=== PATIENT | female | born 1935 | race Caucasian/White ===

== ENCOUNTER 2017-09-30 10:44 | Inpatient (IN) ==
--- NOTE | 2017-09-29 16:49 | Discharge Summary ---
<China Oliver E - Last Filed: 09/29/17 16:45> Date of Encounter: 09/29/17 - Discharge Diagnosis (1) Arthritis of left knee Priority: Primary Status: Chronic (2) Chronic pain Priority: Secondary Status: Chronic Comments: Patient takes Oxycontin 30mg BID Qualifiers: Chronic pain type: other chronic pain Qualified Code(s): G89.29 - Other chronic pain (3) Atrial fibrillation Priority: Secondary Status: Chronic Qualifiers: Atrial fibrillation type: unspecified Qualified Code(s): I48.91 - Unspecified atrial fibrillation (4) care home current use of anticoagulant Priority: Secondary Status: Chronic Comments: Eliquis (5) HTN (hypertension) Priority: Secondary Status: Chronic Qualifiers: Hypertension type: unspecified Qualified Code(s): I10 - Essential (primary ) hypertension (6) HLD (hyperlipidemia) Priority: Secondary Status: Chronic Qualifiers: Hyperlipidemia type: unspecified Qualified Code(s): E78.5 - Hyperlipidemia , unspecified (7) CAD (coronary artery disease) Priority: Secondary Status: Chronic Qualifiers: Coronary Disease-Associated Artery/Lesion type: unspecified vessel or lesion type [place] vs. 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 - Discharge Medications Home Medications: Apixaban [Eliquis] 5 mg PO BID 09/30/17 [History] Aspirin [Lo-Dose Aspirin EC] 81 mg PO DAILY 09/30/17 [History] Biotin 5,000 mcg PO BID 09/30/17 [History] Calcium Carb,Cit/D3/Phytostrol [Citracal D + Heart Health Tab] 1 tab PO DAILY [History] Cholecalciferol (D-3) [Vitamin D] 1,000 unit PO BID 09/30/17 [History] Escitalopram [Lexapro] 20 mg PO DAILY 09/30/17 [History] Lisinopril [Zestril] 5 mg PO DAILY 09/30/17 [History] Magnesium Oxide [Magnesium] 400 mg PO DAILY 09/30/17 [History] Meloxicam [Mobic] 15 mg PO DAILY 09/30/17 [History] Mirabegron [Myrbetriq] 50 mg PO DAILY 09/30/17 [History] Ondansetron HCl [Zofran] 4 mg PO Q6H PRN 09/30/17 [History] Oxycodone HCl [Oxycodone HCl ER] 30 mg PO Q12H 09/30/17 [History] Pantoprazole Sodium [Protonix] 40 mg PO DAILY 09/30/17 [History] Potassium Chloride [Klor-Con 10] 10 meq PO DAILY 09/30/17 [History] Pregabalin [Lyrica] 150 mg PO TID 09/30/17 [History] Rosuvastatin Calcium [Crestor] 10 mg PO HS 09/30/17 [History] Sotalol [Betapace] 80 mg PO BID 09/30/17 [History] Sucralfate [Carafate] 1 gm PO Q12H 09/30/17 [History] Temazepam [Restoril] 15 mg PO HS 09/30/17 [History] Allergies/Adverse Reactions: 3 Allergy/AdvReac Type Severity Reaction Status Date / Time No Known Allergies Allergy Unverified 09/04/17 12:06 Primary care physician: Lio Muñoz DO - Patient Status Disposition: Transfer Inpatient Rehab Fac Condition: Good - Discharge Instructions Follow Up With: Lio Muñoz DO [Primary Care Provider] - - Hospital Course Hospital course: Ms. Hardwick is a 82 year old female - Time Spent with Patient Total time spent providing and/or coordinating discharge services: <Sae Damon - Last Filed: 10/02/17 07:48> Date of Encounter: 10/02/17 Time of Encounter: 07:47 - Discharge Diagnosis (1) Status post left knee replacement Priority: Primary Status: Acute (2) Arthritis of left knee Priority: Primary Status: Chronic (3) Chronic pain Priority: Secondary Status: Chronic Qualifiers: Chronic pain type: other chronic pain Qualified Code(s): G89.29 - Other chronic pain (4) Atrial fibrillation Priority: Secondary Status: Chronic Qualifiers: Atrial fibrillation type: unspecified Qualified Code(s): I48.91 - Unspecified atrial fibrillation (5) care home current use of anticoagulant Priority: Secondary Status: Chronic (6) HTN (hypertension) Priority: Secondary Status: Chronic Qualifiers: Hypertension type: unspecified Qualified Code(s): I10 - Essential (primary ) hypertension (7) HLD (hyperlipidemia) Priority: Secondary Status: Chronic Qualifiers: Hyperlipidemia type: unspecified Qualified Code(s): E78.5 - Hyperlipidemia , unspecified (8) CAD (coronary artery disease) Priority: Secondary Status: Chronic Qualifiers: Coronary Disease-Associated Artery/Lesion type: unspecified vessel or lesion type [place] vs. transplanted heart: unspecified whether [place] or transplanted heart Associated angina: angina presence unspecified Qualified Code(s): I25.10 - Atherosclerotic heart disease of [place] coronary artery without angina pectoris (9) OAB (overactive bladder) Priority: Secondary Status: Chronic (10) Anemia due to acute blood loss Priority: Primary Status: Acute Primary care physician: Lio Muñoz DO - Patient Status Functional capacity at discharge: uses cane/walker Overall status at discharge: patient is progressing back to baseline - Hospital Course Hospital course: Ms. Hardwick is a 82 year old female Post left total knee replacement The patient had an uneventful postoperative course. They received antibiotics and physical therapy and were discharged in stable condition. There will follow -up in the office in 2 weeks. - Time Spent with Patient Total time spent providing and/or coordinating discharge services:
--- NOTE | 2017-09-29 16:52 | Physician Discharge Referral ---
Home Health/Hosp Referral Info Transfer to: Home Health Attending Provider: Dr. 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 For more information, call the [place] Tobacco Quit Line at 2-687-MYGU-NOW. - Dressing/Wound Care Site: left knee Type of Dressing/Treatments w/Frequency: Opsite placed. Keep dressing intact until first follow up appointment. If > 50% saturated, notify office, remove dressing and place appropriate dressing back in place. Dressing is water resistant, not water-proof. OK to shower, but do not get dressing wet. - Diet/Nutrition Diet/Nutrition Orders: Regular - Activity Activity Orders: Up ad radha, Ambulate, Chair, Walker Activity: List: Total Knee replacement Precautions x 6 weeks Apply cold therapy wrap 3-6x/day for 20 minutes at a time. Encourage ambulation throughout the day and incentive spirometer 10x/hour. Elevate affected extremity above heart as tolerated. Brace: Wear knee immobilizer at night x 2 weeks. - Services Needed Following services are medically necessary services: Nursing, Home Health Aide, Physical Therapy, Occupational Therapy - Transfer Medications Allergies/Adverse Reactions: 3 Allergy/AdvReac Type Severity Reaction Status Date / Time No Known Allergies Allergy Unverified 09/04/17 12:06 Certification: Further, I certify that my clinical findings support that this patient is homebound (i.e. absences from home require considerable and taxing effort and are for medical reasons or restorationism services or infrequently or short duration when for other reasons) because: Homebound Reason: Post-surgery restriction and or conditions limit ability to leave home Attestation: My signature below is to certify that this patient is under my care and that I, or nurse practitioner, or a physician social human services assistants working with me, has a face-to- face encounter with this patient.
--- NOTE | 2017-09-29 16:53 | Physician Discharge Referral ---
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 Priority: Secondary Status: Chronic (5) HTN (hypertension) Priority: Secondary Status: Chronic (6) HLD (hyperlipidemia) Priority: Secondary Status: Chronic (7) CAD (coronary artery disease) Priority: Secondary Status: Chronic (8) OAB (overactive bladder) Priority: Secondary Status: Chronic (9) 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 For more information, call the [employer] Tobacco Quit Line at 7-613-ERYH-NOW. - Ancillary Orders May use pressure relief devices daily prn, May go on LORENA w/family/respon democrat w /meds at nurse discretion PRN, May consult with Dentist, Lease Operator, Enrobing Machine Operator PRN - Mobility Orders Chair, Ambulate - Rehabiliation Orders Rehab Potential: Good Rehab Orders: Evaluation for Physical Therapy, Evaluation for Occupational Therapy Other: Total Knee replacement Precautions x 6 weeks Apply cold therapy wrap 3-6x/day for 20 minutes at a time. Encourage ambulation throughout the day and incentive spirometer 10x/hour. Elevate affected extremity above heart as tolerated. Brace: Wear knee immobilizer at night x 2 weeks. - Treatments Skin tear care topically daily PRN per policy List/Other: Opsite placed. Keep dressing intact until first follow up appointment. If > 50% saturated, notify office, remove dressing and place appropriate dressing back in place. Dressing is water resistant, not water-proof. OK to shower, but do not get dressing wet. - Diet Orders Regular CERTIFICATION: I certify that the transfer of the above named patient to an Extended Care Facility is necessary for the continuing treatment of the diagnosis listed. The above information is true and accurate reflection of patient's current condition. Confidential - Redisclosure prohibited without a patient's written consent.
[2017-09-30] MEDS ORDERED: CeFAZolin Syr 2,000MG/20 ML 2,000 MG/20 ML SYRINGE IVPB ONE (11:05)
--- NOTE | 2017-09-30 11:15 | Anesthesia Evaluation PreOp ---
Date of Encounter: 09/30/17 Time of Encounter: 11:10 - Past History Planned Operation: Left Total Knee Arthroplasty Cardiac History: [place] (7 years ago), CHF, HTN, Hyperlipidemia, Arrhythmia (Afib) Pulmonary History: Denies Any Significant HX SURGICAL PHYSICIAN ASSISTANT History: CVA (no residual7 years ago), Other (Lumbar DDD, stenosis, HNP and compression fx.) Other Medical History: Denies Any Significant HX, GERD Anesthesia History: No Prior Anesthetic Complications, Past Anesthesia ( laminectomy, discectomy, Kypholplasty, l. wrist, DOMINIC) : No Alcohol Use: none Drug use: none Medications and Allergies 3 Allergy/AdvReac Type Severity Reaction Status Date / Time No Known Allergies Allergy Unverified 09/04/17 12:06 - Meds/Allergy Pre-op Review Medications Reviewed: Yes Allergies Reviewed: Yes Beta Blockers on Current Med List: Yes If Beta Blockers taken, Date/Time (Last Dose taken): Sotolol @ 08:30 09/30/2017 Anesthesia Results - Labs Laboratory Tests 09/04/17 09/04/17 09/04/17 12:20 12:20 12:20 WBC 7.8 Hgb 13.2 Plt Count 204 INR 1.4 Sodium 142 Potassium 3.9 Chloride 102 Carbon Dioxide 30 H BUN 11 Creatinine 1.09 - Imaging EKG: image reviewed (SR, Old inf and ant [place]) Anesthesia Exam O2 Sat Height 1.65 m Height 1.65 m Height 1.65 m Weight 74.843 kg Weight 74.843 kg Weight 74.843 kg O2 Sat by Pulse Oximetry 93 O2 Sat by Pulse Oximetry 93 Vital Signs Temp Pulse Resp BP Pulse Ox 98.2 F 66 18 154/80 93 09/30/17 11:11 09/30/17 11:11 09/30/17 11:11 09/30/17 11:11 09/30/17 11:11 Height: 5'5'' Weight: 165# NPO (# of Hours): > 8 hrs Pain Scale: 0 Pain Scale Used: Numeric (1 - 10) - HEENT Pupil (Motor): Pupils equal, EOMI Mallampati: I Teeth: Normal Oral Opening: Greater than 3 - SURGICAL PHYSICIAN ASSISTANT LOC: Oriented SURGICAL PHYSICIAN ASSISTANT Motor: Normal RUE, Normal LUE, Normal RLE, Normal LLE, Normal Face SURGICAL PHYSICIAN ASSISTANT Sensory: Normal: RUE, LUE, RLE, LLE, Face - Cardiac Rhythm: Regular Murmur: None JVD: No Carotid Bruit: No - Pulmonary Breath Sounds: bilateral Clear Respiratory Effort: Symmetrical Anesthesia Assess/Plan ASA Score: 3 Modified Allen Scale for Level of Consciousness: Cooperative, oriented, and tranquil Anesthetic Plan: General, Regional (Right Fem. Nerve Block) Autologous Blood: Yes Monitoring Plan: Standard Monitors Recovery Plan: PACU
[2017-09-30] MEDS: Ringers Solution, Lactated 1,000 ML IVC SCH ×2 (11:41→15:34)
--- NOTE | 2017-09-30 12:10 | History & Physical Report ---
Date of Encounter: 09/30/17 Time of Encounter: 12:10 24 Hour HP Update - Instructions Instructions: If the History and Physical is less than 30 days old and was completed prior to A.M. admission and or procedure and has NOT been updated on calendar day of procedure please complete this update prior to performing procedure. - Update Patient reports changes in Medical Condition: No Changes in examination, assessment, or condition: No Changes in Medication: No Preop tests/diagnostics Reviewed: Yes Surgery Remains Indicated: Yes Consent for Planned Operative Procedure(s) Verified: Yes - Pre-Operative Checklist Preoperative Checklist Indicated: No Prophylactic Antibiotic Ordered: Yes Is VTE Prophylaxis Indicated?: Yes
[2017-09-30] MEDS ORDERED: ROPIVACAINE HCL/PF 0.5% 30 ML VIAL ONE (12:57)
[2017-09-30] MEDS ORDERED: Bupivacaine/Clonidine Syringe 1 EACH SYRINGE ONE (12:57)
[2017-09-30] MEDS ORDERED: Ethanol\\Acetic Acid\\Na Ace\\Ben 1,000 ML IRRIG.SOLN IR ONE (13:42)
--- NOTE | 2017-09-30 13:45 | Anesthesia Procedures ---
Date of Encounter: 09/30/17 Time of Encounter: 13:42 Procedures: Anesthesia - Nerve Block Procedure Date: 09/30/17 Time: 13:42 Allergies/Adv Reactions: 3 Allergy/AdvReac Type Severity Reaction Status Date / Time No Known Allergies Allergy Unverified 09/04/17 12:06 Pre-op Diagnosis: left knee oa Surgical Procedure: left total knee Checklist: Correct Patient Identifier, Correct procedure, History checked Correct side: Left Blood Thinner: No Monitor Applied: EKG, BP, Pulse Oximetry Supplemental Oxygen via Nasal Cannula (L/min): 2 Sedation: Versed (mg): 1 Sedation: Fentanyl (mcg): 100 Indication: Post Op Analgesia Pre-op Neuro Deficits: No Block Type: Femoral (0.5% ropivicaine 30 ml), Other (iPACK 20cc 0.25% bupivicaine) Catheter placed: No Sterile Technique: Yes Ultrasound used: Yes Anatomy identified: Yes Visual spread of Local: Yes Neuro Stimulation: Yes (femoral) Nerve Stimulator Range: 0.2 - 0.4 mA Blood on Needle Aspiration: No Smooth Injection of Local: Yes Pain with Injection of Local: No Prep: Chlorhexadine Needle: 22 x 50 mm Stimuplex (femoral), 21 x 100 mm Stimuplex (iPACK) Local: 0.25% Bupivicaine w/Clonidine 20 mcg/cc, Ropivacaine Volume (cc): 50 Number of Attempts: 1 Complications: None/effective block
[2017-09-30] MEDS ORDERED: EPHEDrine 50 MG/ML VIAL ONE (14:09)
[2017-09-30] MEDS ORDERED: *HR* FentaNYL (PF) 100 MCG/2 ML VIAL ONE (14:21)
[2017-09-30] MEDS ORDERED: Dexamethasone 4 MG/ML VIAL ONE (14:21)
[2017-09-30] MEDS ORDERED: *HR* Propofol 200 MG/20 ML VIAL IVP ONE (14:21)
[2017-09-30] MEDS ORDERED: *HR* Midazolam HCl 2 MG/2 ML VIAL ONE (14:21)
[2017-09-30] MEDS ORDERED: Lidocaine -MPF 2% 2 ML VIAL ONE (14:21)
[2017-09-30] MEDS ORDERED: *HR* Succinylcholine 200 MG/10 ML VIAL IVP ONE (14:21)
[2017-09-30] MEDS ORDERED: *HR* Labetalol 20 MG/4 ML SYRINGE IVP PRN (14:27)
[2017-09-30] MEDS ORDERED: Ondansetron 4 MG/2 ML VIAL IVP PRN ×2 (14:27→16:33)
--- NOTE | 2017-09-30 14:35 | Orthopedic Operative Note ---
Date of procedure: 09/30/17 Pre-op diagnosis: Left knee arthritis Post-op diagnosis: same Procedure: Procedure: Left Total knee replacement Estimated blood loss: 600 cc Hardware: Metal and polyethylene replacement. Arthrex Femur: 5 Tibia: 5 PS insert: 16 Patella: 37 Exam Under anesthesia: Loss of full extension 30 degrees, severe varus alignment. Procedural Notes: Grade 4 arthritic changes medial compartment patellofemoral joint Operative procedure: The patient was brought to the operating room and placed on the operating room table. After general anesthesia was administered the operative knee was examined. Findings were noted in the exam under anesthesia. The operative extremity was prepped and draped in sterile surgical fashion. The patient received IV antibiotics prior to skin incision. A standard midline incision was made centered over the patella. The incision was made through the skin and subcutaneous tissue. A medial parapatellar tendon approach was performed. Care was taken to preserve tissue along the medial aspect of the patella. And to protect the patella tendon. The deep MCL was released off the medial tibia. The infra patella fat pad was excised. Knee was brought into flexion. Patient noted a grade 4 arthritic changes medial compartment and patellofemoral joint. The entry hole was made for the intramedullary femoral guide. The guide was seated in 6 degrees of valgus. Anterior cut was made followed by the distal cut. The ACL the PCL the medial and the lateral menisci were excised. The tibia was subluxed forward. The entry hole was made for the intramedullary tibial guide. Guide was seated to resect 2 mm off the more abnormal side. The knee was brought into flexion the distal femur was sized to a 5. The femoral guide was seated, the anterior cut was made followed by the posterior condylar cut, followed by the chamfer cuts. The finishing guide was seated the box cut was made and the lug holes were drilled. The tibia was sized to a 5, the tibial tray was seated and prepared with the large drill followed by the fin cutter. Trial reduction revealed full extension no varus valgus instability with the appropriate 16 PS Staci. The patella was everted and cut was made at the level of the insertion of the quadriceps and patella tendon. The patella was sized 37 the guide was seated and the lug holes are drilled. Trial reduction revealed excellent patella tracking. All trial components were removed all bony surfaces were irrigated. The tibia was cemented first followed by the femur. The 16 PS Staci was seated and the knee was brought into full extension. The patella was cemented and held in place with the patellar holding clamp. After the cement had hardened, the knee sat for 2 minutes with a Betadine saline solution. The PA closed the knee. The knee was then irrigated out with 2 L of pulse irrigation. The extensor mechanism was closed with #2 FiberWire suture and #2 PDS suture. The subcutaneous tissue was then irrigated and closed deep with #1 PDS suture superficially with 0 PDS suture and skin was closed with skin zurdo. The patient was then placed in a sterile dressing and a postoperative brace extubated and transferred to recovery room in stable condition. Anesthesia: PARKER Surgeon: Sae Damon Liquor Commissioner: China Oliver Condition: stable Disposition: PACU
[2017-09-30] MEDS: *HR* HYDROmorphone (PF) 1 MG/ML SYRINGE IVP PRN ×4 (15:30→17:44)
--- NOTE | 2017-09-30 16:06 | Anesthesia Evaluation Post Op ---
Date of Encounter: 09/30/17 Time of Encounter: 16:05 - Vital Signs Vital Signs: Vital Signs/O2 Sat, Most Current Temp Pulse Resp BP Pulse Ox 98.0 F 59 16 135/86 97 09/30/17 15:47 09/30/17 15:57 09/30/17 15:57 09/30/17 15:57 09/30/17 15:57 - Lungs Lungs: Clear Ascult./Percussion - Airway Airway: Non-obstructed - Cardiovascular Regular Rate - Mental Status Mental Status: Alert & Oriented, Answers Appropriately - Pain Pain Scale: 8 Pain Scale used: Numeric (1 - 10) - Nausea Vomiting Nausea Vomiting: Not Present - Hydration Hydration: Ice chips, Has not voided - Discharge PostOp Status: Transfer Patient to floor
[2017-09-30 16:33] LABS: Hemoglobin 11.1 g/dL (11.5-15.4)
[2017-09-30] MEDS ORDERED: Sennosides 8.6 MG TABLET PO PRN (16:33)
[2017-09-30] MEDS ORDERED: Naloxone 0.4 MG/ML INJ IVP PRN (16:33)
[2017-09-30] MEDS ORDERED: MOM Conc 10 ML UD.LIQ PO PRN (16:33)
[2017-09-30] MEDS ORDERED: *HR* OxyCODONE Immed Rel 5 MG TABLET PO PRN (16:33)
[2017-09-30] MEDS ORDERED: Ringers Solution, Lactated 1,000 ML IVC SCH (16:33)
[2017-09-30] MEDS ORDERED: Temazepam 15 MG CAPSULE PO PRN (16:33)
[2017-09-30] MEDS: CeFAZolin Premix DUPLEX 2,000 MG/50 ML BAG IVPB SCH (17:45)
[2017-09-30] MEDS ORDERED: *HR* Enoxaparin 30 MG/0.3 ML SYRINGE SQ SCH (18:00)
[2017-09-30] MEDS: *HR* OxyCODONE Immed Rel 5 MG TABLET PO PRN (18:42)
[2017-09-30] MEDS: Pregabalin 75 MG CAPSULE PO SCH ×2 (18:42→20:33)
[2017-09-30] MEDS: Sucralfate 1 GM TABLET PO SCH (18:42)
[2017-09-30] MEDS: Temazepam 15 MG CAPSULE PO SCH (20:34)
[2017-09-30] MEDS: APIXABAN 5 MG TABLET PO SCH (20:34)
[2017-09-30] MEDS: Cholecalciferol (D-3) 1,000 UNIT TABLET PO SCH (20:45)
[2017-09-30] MEDS ORDERED: Furosemide 20 MG/2 ML VIAL IVP ONE (21:13)
[2017-09-30] MEDS ORDERED: 0.9 % Sodium Chloride 250 ML ONE (22:38)
[2017-10-01] MEDS: *HR* OxyCODONE Immed Rel 5 MG TABLET PO PRN ×5 (01:18→20:07)
[2017-10-01] MEDS: CeFAZolin Premix DUPLEX 2,000 MG/50 ML BAG IVPB SCH (01:21)
[2017-10-01] MEDS ORDERED: 0.9 % Sodium Chloride 250 ML ONE (03:51)
[2017-10-01] MEDS: Sucralfate 1 GM TABLET PO SCH ×2 (04:37→16:25)
--- NOTE | 2017-10-01 06:24 | Orthopedics Progress Note ---
Date of Encounter: 10/01/17 Time of Encounter: 06:24 - Assessment and Plan (1) Status post left knee replacement Current Visit: Yes Status: Acute (2) Arthritis of left knee Current Visit: No Status: Chronic (3) Chronic pain Current Visit: No Status: Chronic Qualifiers: Chronic pain type: other chronic pain Qualified Code(s): G89.29 - Other chronic pain (4) Atrial fibrillation Current Visit: No Status: Chronic Qualifiers: Atrial fibrillation type: unspecified Qualified Code(s): I48.91 - Unspecified atrial fibrillation (5) senior care current use of anticoagulant Current Visit: No Status: Chronic (6) HTN (hypertension) Current Visit: No Status: Chronic Qualifiers: Hypertension type: unspecified Qualified Code(s): I10 - Essential (primary ) hypertension (7) HLD (hyperlipidemia) Current Visit: No Status: Chronic Qualifiers: Hyperlipidemia type: unspecified Qualified Code(s): E78.5 - Hyperlipidemia , unspecified (8) CAD (coronary artery disease) Current Visit: No Status: Chronic Qualifiers: Coronary Disease-Associated Artery/Lesion type: unspecified vessel or lesion type [place] vs. transplanted heart: unspecified whether [place] or transplanted heart Associated angina: angina presence unspecified Qualified Code(s): I25.10 - Atherosclerotic heart disease of [place] coronary artery without angina pectoris (9) OAB (overactive bladder) Current Visit: No Status: Chronic Subjective Interval history: Patient was seen this morning doing well without complaints. Afebrile vital signs stable. Operative extremity: Neurovascularly intact Dressing clean dry and intact Calves nontender Assessment and plan: Continue with postoperative care Hypotensive overnight responded well to transfusion. Check H&H and morning Objective Vital signs: Vital Signs Temp Pulse Resp BP Pulse Ox 10/01/17 04:49 97.5 F L 59 16 120/68 99 10/01/17 04:34 97.8 F 56 15 112/56 98 10/01/17 03:48 97.6 F 65 16 106/64 95 10/01/17 01:20 97.6 F 61 15 115/68 09/30/17 23:21 97.4 F L 58 14 103/57 99 09/30/17 23:06 97.4 F L 55 15 103/59 97 09/30/17 22:34 105/61 09/30/17 21:02 66 83/50 09/30/17 20:50 68 63/40 09/30/17 19:05 97.3 F L 68 18 97/57 99 09/30/17 18:35 97.9 F 66 14 97/57 97 09/30/17 17:35 73 14 121/76 98 09/30/17 17:21 68 14 108/65 97 09/30/17 16:39 97.9 F 63 16 113/76 98 09/30/17 16:07 97.8 F 60 14 132/81 98 09/30/17 15:57 59 16 135/86 97 09/30/17 15:47 98.0 F 62 18 100/87 98 09/30/17 15:37 61 16 159/101 95 09/30/17 15:27 70 16 148/107 95 09/30/17 15:17 97.4 F L 65 14 138/103 94 09/30/17 13:35 62 16 154/85 95 09/30/17 13:25 63 16 153/77 97 09/30/17 13:15 62 16 153/80 95 09/30/17 13:05 59 16 146/79 95 09/30/17 11:13 98.2 F 66 18 154/80 93 09/30/17 11:11 98.2 F 66 18 154/80 93 Intake and Output 09/30/17 09/30/17 10/01/17 15:59 23:59 07:59 Intake Total 975 / 975 440 / 440 400 / 400 Output Total 600 / 600 200 / 200 150 / 150 Balance 375 / 375 240 / 240 250 / 250 Intake: IV Fluids 975 / 975 50 / 50 Lactated Ringers 1,000 ML @ 75 975 / 975 mls/hr IVC .[id number] [facility] Rx#: [id number] Ancef Premix DUPLEX 2,000 mg In 50 / 50 50 ml @ 100 mls/hr IVPB Q8H [facility] Rx#:[id number] Oral 390 / 390 50 / 50 Blood Product 0 / 0 350 / 350 Rbcs Leuko Poor As-1 Unit 0 / 0 350 / 350 [id number] Rbcs Leuko Poor As-1 Unit 0 / 0 [id number] Output: Urine 200 / 200 150 / 150 Estimated Blood Loss 600 / 600 Other: Weight 74.843 kg - Labs CBC & BMP: 09/30/17 16:02 Labs: Abnormal lab results Hgb 11.1 g/dL (11.5-15.4) L 09/30/17 16:02 Hct 34.0 % (35.3-44.9) L 09/30/17 16:02 - VTE Documentation of Mechanical Device: Venous foot pump, device Consult Discharge Plan - Plan Referrals: Lio Muñoz DO [Primary Care Provider] -
[2017-10-01] MEDS: Aspirin Enteric Coated 81 MG Tablet PO SCH (07:48)
[2017-10-01] MEDS: Cholecalciferol (D-3) 1,000 UNIT TABLET PO SCH (07:49)
[2017-10-01] MEDS: Pregabalin 75 MG CAPSULE PO SCH ×3 (07:49→20:06)
[2017-10-01] MEDS: Magnesium Oxide 400 MG TABLET PO SCH (07:49)
[2017-10-01] MEDS: APIXABAN 5 MG TABLET PO SCH ×2 (07:50→20:07)
[2017-10-01] MEDS: PHYTOSTROL PO SCH (07:51)
[2017-10-01] MEDS: CALCIUM CARB CIT PO SCH (07:51)
[2017-10-01] MEDS: D3 PO SCH (07:51)
[2017-10-01] MEDS: (Mirabegron [Myrbetriq] 50 MG) PO SCH (07:52)
[2017-10-01 09:38] LABS: Hematocrit 34.1 % (35.3-44.9); Hemoglobin 11.2 g/dL (11.5-15.4)
[2017-10-01 09:50] LABS: BUN/Creatinine Ratio 18 (6-26); Blood Urea Nitrogen 15 mg/dL (7-20); Calcium 8.5 mg/dL (8.6-10.8); Carbon Dioxide 28 mEq/L (19-29); Chloride 102 mEq/L (98-109); Glucose 166 mg/dL (70-99); Osmolality,Calculated 293 (280-300); Potassium 3.4 mEq/L (3.5-4.5); Sodium 139 mEq/L (136-145); eGFR For African Americans > 60 (> 60); eGFR For Non-African Americans > 60 (> 60)
--- NOTE | 2017-10-01 11:21 | Event Note ---
Date of Encounter: 10/01/17 Time of Encounter: 11:30 PCR- POD#1 Left TKR [place] 09/30/17 PCR - Patient seen at bedside. 10/01 - H/H 11.2/34.1 - patient received 2 units transfusion after hypotensive episode on POD#0. Pain control: Adequate Participating in PT. All questions and concerns addressed. patient c/o right knee pain. D/w Dr. Damon. Proceed with right knee steroid joint injection. Educated on use of incentive spirometer, ambulation, and hydration. Patient educated on post-operative restrictions and care. Addressed: see above. Will perform knee injection after informed consent later this afternoon. D/C plan: [facility] inpatient rehab - awaiting approval
[2017-10-01] MEDS: *HR* HYDROmorphone (PF) 1 MG/ML SYRINGE IVP PRN (11:29)
--- NOTE | 2017-10-01 16:16 | Event Note ---
Date of Encounter: 10/01/17 Time of Encounter: 15:40 Patient requested right knee injection for right knee pain and swelling. Discussed with Dr. Damon. I discussed with the patient the potential benefits as well as potential risks ( including infection, pain, bleeding, bruising skin color changes). After informed consent and after the area was prepped with alcohol via an anteromedial approach 4:1 Sensorcaine:DepoMedrol 80mg was injected into the RIGHT knee without complication. The patient tolerated the procedure well. A sterile dressing was placed. Handout re: injection provided to patient.
[2017-10-01] MEDS: Temazepam 15 MG CAPSULE PO SCH (20:07)
[2017-10-02] MEDS: Sucralfate 1 GM TABLET PO SCH (04:40)
[2017-10-02] MEDS: *HR* OxyCODONE Immed Rel 5 MG TABLET PO PRN ×3 (04:40→12:46)
[2017-10-02 07:02] LABS: Hemoglobin 10.2 g/dL (11.5-15.4)
[2017-10-02 07:20] LABS: BUN/Creatinine Ratio 22 (6-26); Blood Urea Nitrogen 18 mg/dL (7-20); Calcium 8.6 mg/dL (8.6-10.8); Carbon Dioxide 30 mEq/L (19-29); Chloride 104 mEq/L (98-109); Glucose 115 mg/dL (70-99); Osmolality,Calculated 297 (280-300); Potassium 3.2 mEq/L (3.5-4.5); Sodium 142 mEq/L (136-145); eGFR For African Americans > 60 (> 60); eGFR For Non-African Americans > 60 (> 60)
--- NOTE | 2017-10-02 07:49 | Orthopedics Progress Note ---
Date of Encounter: 10/02/17 Time of Encounter: 07:49 - Assessment and Plan (1) Status post left knee replacement Current Visit: Yes Status: Acute (2) Arthritis of left knee Current Visit: No Status: Chronic (3) Chronic pain Current Visit: No Status: Chronic Qualifiers: Chronic pain type: other chronic pain Qualified Code(s): G89.29 - Other chronic pain (4) Atrial fibrillation Current Visit: No Status: Chronic Qualifiers: Atrial fibrillation type: unspecified Qualified Code(s): I48.91 - Unspecified atrial fibrillation (5) MCFP current use of anticoagulant Current Visit: No Status: Chronic (6) HTN (hypertension) Current Visit: No Status: Chronic Qualifiers: Hypertension type: unspecified Qualified Code(s): I10 - Essential (primary ) hypertension (7) HLD (hyperlipidemia) Current Visit: No Status: Chronic Qualifiers: Hyperlipidemia type: unspecified Qualified Code(s): E78.5 - Hyperlipidemia , unspecified (8) CAD (coronary artery disease) Current Visit: No Status: Chronic Qualifiers: Coronary Disease-Associated Artery/Lesion type: unspecified vessel or lesion type [place] vs. transplanted heart: unspecified whether [place] or transplanted heart Associated angina: angina presence unspecified Qualified Code(s): I25.10 - Atherosclerotic heart disease of [place] coronary artery without angina pectoris (9) OAB (overactive bladder) Current Visit: No Status: Chronic (10) Anemia due to acute blood loss Current Visit: Yes Status: Acute Subjective Interval history: Patient was seen this morning doing well without complaints. Afebrile vital signs stable. Operative extremity: Neurovascularly intact Dressing clean dry and intact Calves nontender Assessment and plan: Continue with postoperative care Discharged today Objective Vital signs: Vital Signs Temp Pulse Resp BP Pulse Ox 10/02/17 06:38 99.1 F 69 18 148/80 93 10/02/17 00:15 97.9 F 68 18 120/74 92 10/01/17 19:57 99.3 F 63 18 112/62 93 10/01/17 14:54 97.6 F 60 15 95/56 94 10/01/17 10:42 97.7 F 68 16 94/55 96 10/01/17 08:20 97.5 F L 56 15 109/62 99 Intake and Output 10/01/17 10/01/17 10/02/17 15:59 23:59 07:59 Intake Total 470 / 470 240 / 240 Output Total 450 / 450 Balance 240 / 240 Intake: Oral 120 / 120 240 / 240 Blood Product 350 / 350 Rbcs Leuko Poor As-1 Unit 350 / 350 [id number] Output: Urine 450 / 450 Other: Meal Lunch Dinner Percent of Meal Consumed 60% 100% Stool Size Small Small Stool Consistency loose Stool Color Brown # Voids 1 # Bowel Movements 2 1 - Labs CBC & BMP: 10/02/17 06:20 10/02/17 06:20 Labs: Abnormal lab results Hgb 10.2 g/dL (11.5-15.4) L 10/02/17 06:20 Hct 31.0 % (35.3-44.9) L 10/02/17 06:20 Potassium 3.2 mEq/L (3.5-4.5) L 10/02/17 06:20 Carbon Dioxide 30 mEq/L (19-29) H 10/02/17 06:20 Glucose 115 mg/dL (70-99) H 10/02/17 06:20 - VTE Documentation of Mechanical Device: Venous foot pump, device Consult Discharge Plan - Plan Referrals: Lio Muñoz DO [Primary Care Provider] -
[2017-10-02] MEDS: Aspirin Enteric Coated 81 MG Tablet PO SCH (08:41)
[2017-10-02] MEDS: APIXABAN 5 MG TABLET PO SCH (08:41)
[2017-10-02] MEDS: Magnesium Oxide 400 MG TABLET PO SCH (08:41)
[2017-10-02] MEDS: Pregabalin 75 MG CAPSULE PO SCH (08:41)
[2017-10-02] MEDS: Cholecalciferol (D-3) 1,000 UNIT TABLET PO SCH (08:41)
[2017-10-02] MEDS: D3 PO SCH (08:42)
[2017-10-02] MEDS: PHYTOSTROL PO SCH (08:42)
[2017-10-02] MEDS: (Mirabegron [Myrbetriq] 50 MG) PO SCH (08:42)
[2017-10-02] MEDS: CALCIUM CARB CIT PO SCH (08:42)
[2017-10-02 11:16] VITALS: BP 117/60
--- NOTE | 2017-10-02 12:49 | Event Note ---
Date of Encounter: 10/02/17 Time of Encounter: 11:50 PCR- POD#2 Left TKR Damon 09/30/17 PCR - Patient seen at bedside. 10/01 - H/H 11.2/34.1 - patient received 2 units transfusion after hypotensive episode on POD#0. 10/02 - H/H 10.2/31.0 Pain control: Adequate Participating in PT. All questions and concerns addressed. Educated on use of incentive spirometer, ambulation, and hydration. Patient educated on post-operative restrictions and care. Addressed: see above. Right knee injection given yesterday by LAYLA Samuels D/C plan: [facility] inpatient rehab plan for DC today
== END 2017-10-02 13:13 | DRG 470 ==
LOC: SAMDAY 10:44 → 3NENU 10:45
PROVIDERS: ADMIT Orthopaedic Surgery; ATTEND Orthopaedic Surgery

== ENCOUNTER 2017-12-04 12:11 | Inpatient (IN) ==
--- NOTE | 2017-12-03 22:49 | Discharge Summary ---
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 transplanted heart: unspecified whether [place] or transplanted heart Associated angina: angina presence unspecified Qualified Code(s): I25.10 - Atherosclerotic heart disease of [place] coronary artery without angina pectoris (8) OAB (overactive bladder) Priority: Secondary Status: Chronic (9) Status post total left knee replacement Priority: Secondary Status: Chronic (10) Status post total right knee replacement Priority: Primary Status: Acute - Discharge Medications Home Medications: Apixaban [Eliquis] 5 mg PO BID 09/30/17 [History] Aspirin [Lo-Dose Aspirin EC] 81 mg PO DAILY 09/30/17 [History] Biotin 5,000 mcg PO BID 09/30/17 [History] Calcium Carb,Cit/D3/Phytostrol [Citracal D + Heart Health Tab] 1 tab PO DAILY [History] Cholecalciferol (D-3) [Vitamin D] 1,000 unit PO BID 09/30/17 [History] Escitalopram [Lexapro] 20 mg PO DAILY 09/30/17 [History] Lisinopril [Zestril] 5 mg PO DAILY 09/30/17 [History] Magnesium Oxide [Magnesium] 400 mg PO DAILY 09/30/17 [History] Meloxicam [Mobic] 15 mg PO DAILY 09/30/17 [History] Mirabegron [Myrbetriq] 50 mg PO DAILY 09/30/17 [History] Ondansetron HCl [Zofran] 4 mg PO Q6H PRN 09/30/17 [History] Oxycodone HCl [Oxycodone HCl ER] 30 mg PO Q12H 09/30/17 [History] Pantoprazole Sodium [Protonix] 40 mg PO DAILY 09/30/17 [History] Potassium Chloride [Klor-Con 10] 10 meq PO DAILY 09/30/17 [History] Pregabalin [Lyrica] 150 mg PO BID 09/30/17 [History] Rosuvastatin Calcium [Crestor] 10 mg PO HS 09/30/17 [History] Sotalol [Betapace] 80 mg PO BID 09/30/17 [History] Sucralfate [Carafate] 1 gm PO Q12H 09/30/17 [History] Temazepam [Restoril] 15 mg PO HS 09/30/17 [History] Ferrous Sulfate [Iron] 325 mg PO DAILY 12/04/17 [History] Furosemide [Lasix] 20 mg PO DAILY 12/04/17 [History] Allergies/Adverse Reactions: 3 Allergy/AdvReac Type Severity Reaction Status Date / Time No Known Allergies Allergy Verified 12/04/17 13:08 Primary care physician: Lio Muñoz DO - Patient Status Disposition: Transfer Inpatient Rehab Fac Condition: Good - Discharge Instructions Follow Up With: China Oliver PAC [Physician Computer Networker] - 12/12/17 2:30 pm (& also, , December 19, 2017 at 11:15 AM) Sae aDmon MD [Partnered Physician] - 01/01/18 5:55 pm Lio Muñoz DO [Primary Care Provider] - - Hospital Course Hospital course: Ms. Hardwick is a 82 year old female - Time Spent with Patient Total time spent providing and/or coordinating discharge services: <Sae Damon - Last Filed: 12/07/17 06:51> Date of Encounter: 12/07/17 Time of Encounter: 06:51 - Discharge Diagnosis (1) Arthritis of left knee Priority: Primary Status: Chronic (2) Chronic pain Status: Chronic Qualifiers: Chronic pain type: other chronic pain Qualified Code(s): G89.29 - Other chronic pain (3) Atrial fibrillation Priority: Secondary Status: Chronic Qualifiers: Atrial fibrillation type: unspecified Qualified Code(s): I48.91 - Unspecified atrial fibrillation (4) retirement current use of anticoagulant Priority: Secondary Status: Chronic (5) HTN (hypertension) Priority: Secondary Status: Chronic Qualifiers: Hypertension type: unspecified Qualified Code(s): I10 - Essential (primary ) hypertension (6) HLD (hyperlipidemia) Priority: Secondary Status: Chronic Qualifiers: Hyperlipidemia type: unspecified Qualified Code(s): E78.5 - Hyperlipidemia , unspecified (7) CAD (coronary artery disease) Priority: Secondary Status: Chronic Qualifiers: Coronary Disease-Associated Artery/Lesion type: unspecified vessel or lesion type [place] vs. 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 Hardwick is a 82 year old female Status post right total knee replacement patient with a hemoglobin of 7.6 transfuse 2 units. The patient had an uneventful postoperative course. They received antibiotics and physical therapy and were discharged in stable condition. There will follow -up in the office in 2 weeks. - Time Spent with Patient Total time spent providing and/or coordinating discharge services:
--- NOTE | 2017-12-04 08:25 | Physician Discharge Referral ---
ExtendedCare Referral Info Transfer To: [facility] Provider in Charge: Dr Damon - Diagnosis (1) Arthritis of right knee Priority: Primary Status: Chronic (2) Chronic pain Priority: Secondary Status: Chronic (3) Atrial fibrillation Priority: Secondary Status: Chronic (4) [facility] current use of anticoagulant Priority: Secondary Status: Chronic (5) HTN (hypertension) Priority: Secondary Status: Chronic (6) HLD (hyperlipidemia) Priority: Secondary Status: Chronic (7) CAD (coronary artery disease) Priority: Secondary Status: Chronic (8) OAB (overactive bladder) Priority: Secondary Status: Chronic (9) Status post total left knee replacement Priority: Secondary Status: Chronic (10) Status post total right knee replacement Priority: Primary Status: Acute Expected Duration of Placement: less than 30 days Prognosis: Good Aware of Diagnosis: Patient Aware of Prognosis: Patient - Transfer Medications Home Medications: Apixaban [Eliquis] 5 mg PO BID 09/30/17 [History] Aspirin [Lo-Dose Aspirin EC] 81 mg PO DAILY 09/30/17 [History] Biotin 5,000 mcg PO BID 09/30/17 [History] Calcium Carb,Cit/D3/Phytostrol [Citracal D + Heart Health Tab] 1 tab PO DAILY [History] Cholecalciferol (D-3) [Vitamin D] 1,000 unit PO BID 09/30/17 [History] Escitalopram [Lexapro] 20 mg PO DAILY 09/30/17 [History] Lisinopril [Zestril] 5 mg PO DAILY 09/30/17 [History] Magnesium Oxide [Magnesium] 400 mg PO DAILY 09/30/17 [History] Meloxicam [Mobic] 15 mg PO DAILY 09/30/17 [History] Mirabegron [Myrbetriq] 50 mg PO DAILY 09/30/17 [History] Ondansetron HCl [Zofran] 4 mg PO Q6H PRN 09/30/17 [History] Oxycodone HCl [Oxycodone HCl ER] 30 mg PO Q12H 09/30/17 [History] Pantoprazole Sodium [Protonix] 40 mg PO DAILY 09/30/17 [History] Potassium Chloride [Klor-Con 10] 10 meq PO DAILY 09/30/17 [History] Pregabalin [Lyrica] 150 mg PO TID 09/30/17 [History] Rosuvastatin Calcium [Crestor] 10 mg PO HS 09/30/17 [History] Sotalol [Betapace] 80 mg PO BID 09/30/17 [History] Sucralfate [Carafate] 1 gm PO Q12H 09/30/17 [History] Temazepam [Restoril] 15 mg PO HS 09/30/17 [History] Allergies/Adverse Reactions: 3 Allergy/AdvReac Type Severity Reaction Status Date / Time No Known Allergies Allergy Unverified 09/04/17 12:06 - Respiratory Orders Smoking Cessation: Smoking cessation has been advised. For more information, call the [employer] Tobacco Quit Line at 0-788-PMGO-NOW. - Ancillary Orders May use pressure relief devices daily prn, May go on LORE[place] w/family/respon green party w /meds at nurse discretion PRN, May consult with Dentist, Data Integrity Analyst, Car Wash Supervisor PRN - Mobility Orders Chair, Ambulate - Rehabiliation Orders Rehab Potential: Good Rehab Orders: Evaluation for Physical Therapy, Evaluation for Occupational Therapy Other: Total Knee replacement Precautions x 6 weeks Apply cold therapy wrap 3-6x/day for 20 minutes at a time. Encourage ambulation throughout the day and incentive spirometer 10x/hour. Elevate affected extremity above heart as tolerated. Brace: Wear knee immobilizer at night x 2 weeks. - Treatments Skin tear care topically daily PRN per policy List/Other: Opsite placed. Keep dressing intact until first follow up appointment. If > 50% saturated, notify office, remove dressing and place appropriate dressing back in place. Leave Zipline intact. Opsite dressing is water resistant, not water- proof. OK to shower, but do not get dressing wet. - Diet Orders Regular CERTIFICATION: I certify that the transfer of the above named patient to an Extended Care Facility is necessary for the continuing treatment of the diagnosis listed. The above information is true and accurate reflection of patient's current condition. Confidential - Redisclosure prohibited without a patient's written consent.
[2017-12-04] MEDS ORDERED: CeFAZolin Syr 2,000MG/20 ML 2,000 MG/20 ML SYRINGE IVPB ONE (12:42)
[2017-12-04] MEDS ORDERED: Ringers Solution, Lactated 1,000 ML IVC SCH (12:45)
--- NOTE | 2017-12-04 12:59 | History & Physical Report ---
Date of Encounter: 12/04/17 Time of Encounter: 12:59 24 Hour HP Update - Instructions Instructions: If the History and Physical is less than 30 days old and was completed prior to A.M. admission and or procedure and has NOT been updated on calendar day of procedure please complete this update prior to performing procedure. - Update Patient reports changes in Medical Condition: No Changes in examination, assessment, or condition: No Changes in Medication: No Preop tests/diagnostics Reviewed: Yes Surgery Remains Indicated: Yes Consent for Planned Operative Procedure(s) Verified: Yes - Pre-Operative Checklist Preoperative Checklist Indicated: No Prophylactic Antibiotic Ordered: Yes Is VTE Prophylaxis Indicated?: Yes
[2017-12-04] MEDS ORDERED: Plasma-Lyte A (PH 7.4) 1,000 ML IVC SCH (13:00)
[2017-12-04] MEDS ORDERED: Propofol 500 MG/50 ML INFUS..BTL ONE (13:44)
[2017-12-04] MEDS ORDERED: Famotidine 20 MG/2 ML VIAL IVP ONE (13:56)
[2017-12-04] MEDS ORDERED: Acetaminophen IV 1,000 MG/100 ML INFUS..BTL IVPB ONE (13:56)
[2017-12-04] MEDS ORDERED: *HR* FentaNYL (PF) 100 MCG/2 ML VIAL ONE ×2 (13:56→15:25)
--- NOTE | 2017-12-04 14:04 | Anesthesia Evaluation PreOp ---
Date of Encounter: 12/04/17 Time of Encounter: 14:00 - Past History Planned Operation: Rt TKA Cardiac History: OR, CHF, HTN, Arrhythmia (Hx AFib, last dose Eliquis 3 days ago ) Pulmonary History: Other (Home oxygen) MATCH MAKER History: CVA, Other (Kyphoplasty Laminectomy Chronic Back Pain) Other Medical History: Other (RA) Anesthesia History: No Prior Anesthetic Complications : No Alcohol Use: none Drug use: none Medications and Allergies Apixaban [Eliquis] 5 mg PO BID 09/30/17 [History] Aspirin [Lo-Dose Aspirin EC] 81 mg PO DAILY 09/30/17 [History] Biotin 5,000 mcg PO BID 09/30/17 [History] Calcium Carb,Cit/D3/Phytostrol [Citracal D + Heart Health Tab] 1 tab PO DAILY [History] Cholecalciferol (D-3) [Vitamin D] 1,000 unit PO BID 09/30/17 [History] Escitalopram [Lexapro] 20 mg PO DAILY 09/30/17 [History] Lisinopril [Zestril] 5 mg PO DAILY 09/30/17 [History] Magnesium Oxide [Magnesium] 400 mg PO DAILY 09/30/17 [History] Meloxicam [Mobic] 15 mg PO DAILY 09/30/17 [History] Mirabegron [Myrbetriq] 50 mg PO DAILY 09/30/17 [History] Ondansetron HCl [Zofran] 4 mg PO Q6H PRN 09/30/17 [History] Oxycodone HCl [Oxycodone HCl ER] 30 mg PO Q12H 09/30/17 [History] Pantoprazole Sodium [Protonix] 40 mg PO DAILY 09/30/17 [History] Potassium Chloride [Klor-Con 10] 10 meq PO DAILY 09/30/17 [History] Pregabalin [Lyrica] 150 mg PO BID 09/30/17 [History] Rosuvastatin Calcium [Crestor] 10 mg PO HS 09/30/17 [History] Sotalol [Betapace] 80 mg PO BID 09/30/17 [History] Sucralfate [Carafate] 1 gm PO Q12H 09/30/17 [History] Temazepam [Restoril] 15 mg PO HS 09/30/17 [History] Ferrous Sulfate [Iron] 325 mg PO DAILY 12/04/17 [History] Furosemide [Lasix] 20 mg PO DAILY 12/04/17 [History] 3 Allergy/AdvReac Type Severity Reaction Status Date / Time No Known Allergies Allergy Verified 12/04/17 13:08 - Meds/Allergy Pre-op Review Medications Reviewed: Yes Allergies Reviewed: Yes Beta Blockers on Current Med List: No Anesthesia Results - Labs Laboratory Tests 09/04/17 10/02/17 10/02/17 12:20 06:20 06:20 Hgb 10.2 L Hct 31.0 L Plt Count 204 Sodium 142 Potassium 3.2 L BUN 18 Creatinine 0.83 - Imaging EKG: report reviewed (SR) Anesthesia Exam O2 Sat Height 1.65 m Height 1.65 m Height 1.65 m Weight 74.843 kg Weight 74.843 kg Weight 74.843 kg O2 Sat by Pulse Oximetry 90 Vital Signs Temp Pulse Resp BP Pulse Ox 98.5 F 64 18 180/85 90 12/04/17 12:35 12/04/17 12:35 12/04/17 12:35 12/04/17 12:35 12/04/17 12:35 Height: 5'5 Weight: 165 lbs NPO (# of Hours): MN Pain Scale: 0 - HEENT Pupil (Motor): Pupils equal, EOMI Oral Opening: Less than or equal to 3 - MATCH MAKER LOC: Oriented MATCH MAKER Motor: Normal RUE, Normal LUE, Normal RLE, Normal LLE, Normal Face MATCH MAKER Sensory: Normal: RUE, LUE, RLE, LLE, Face - Cardiac Rhythm: Regular Murmur: None JVD: No Carotid Bruit: No - Pulmonary Breath Sounds: bilateral Clear Respiratory Effort: Symmetrical Anesthesia Assess/Plan ASA Score: 3 (HTN AFib CAD) Modified Payal Scale for Level of Consciousness: Cooperative, oriented, and tranquil Anesthetic Plan: General, Regional Monitoring Plan: Standard Monitors Recovery Plan: PACU (Discussed GA and RA, agrees to proceed)
[2017-12-04] MEDS ORDERED: *HR* Ropivacaine/PF 0.5% 20 ML VIAL ONE (14:13)
[2017-12-04] MEDS ORDERED: Tetracaine/PF 20 MG/2 ML AMPUL ONE (14:14)
[2017-12-04] MEDS ORDERED: Bupivacaine/Clonidine Syringe 1 EACH SYRINGE ONE (14:14)
[2017-12-04] MEDS ORDERED: Ethanol\\Acetic Acid\\Na Ace\\Ben 1,000 ML IRRIG.SOLN IR ONE (14:41)
[2017-12-04] MEDS ORDERED: Ondansetron 4 MG/2 ML VIAL ONE (14:50)
[2017-12-04] MEDS ORDERED: Lidocaine -MPF 2% 2 ML VIAL ONE (14:50)
[2017-12-04] MEDS ORDERED: Dexamethasone 4 MG/ML VIAL ONE (14:50)
[2017-12-04] MEDS ORDERED: *HR* OxyCODONE Immed Rel 5 MG TABLET PO PRN ×2 (14:59→20:42)
--- NOTE | 2017-12-04 15:04 | Anesthesia Procedures ---
Date of Encounter: 12/04/17 Time of Encounter: 14:00 Procedures: Anesthesia - Nerve Block Procedure Date: 12/04/17 Time: 14:30 Pre-op Diagnosis: Rt Knee Arthropathy Surgical Procedure: Rt TKA Checklist: Correct Patient Identifier Correct side: Right Blood Thinner: Yes (off Eliquis 3 days) Monitor Applied: EKG, BP, Pulse Oximetry Supplemental Oxygen via Nasal Cannula (L/min): 2 Sedation: Fentanyl (mcg): 100 Indication: Post Op Analgesia Pre-op Neuro Deficits: No Block Type: Femoral, Other (IPACK) Catheter placed: No Sterile Technique: Yes Ultrasound used: Yes Anatomy identified: Yes Visual spread of Local: Yes Neuro Stimulation: No Nerve Stimulator Range: >0.4 - 0.6 mA Blood on Needle Aspiration: No Smooth Injection of Local: Yes Pain with Injection of Local: No Prep: Chlorhexadine Needle: 21 x 100 mm Stimuplex Local: 0.25% Bupivicaine w/Clonidine 20 mcg/cc, Tetracaine (20mg), Ropivacaine ( 0.5%) Volume (cc): 30 Ropiv, 20cc 0.25 Bupi Number of Attempts: 1 Complications: None/effective block Vitals: Vital Signs/O2 Sat/Glucose, Most Current Temp Pulse Resp BP Pulse Ox 12/04/17 14:38 60 18 166/83 97 12/04/17 14:26 59 18 146/91 96 12/04/17 12:35 98.5 F 64 18 180/85 90
[2017-12-04] MEDS ORDERED: *HR* Labetalol 20 MG/4 ML SYRINGE IVP PRN (15:06)
[2017-12-04] MEDS ORDERED: Ketorolac 30 MG/ML VIAL ONE (15:28)
--- NOTE | 2017-12-04 15:46 | Orthopedic Operative Note ---
Date of procedure: 12/04/17 Pre-op diagnosis: Right knee arthritis Post-op diagnosis: same Procedure: Procedure: Right Total knee replacement Estimated blood loss: 200 cc Hardware: Metal and polyethylene replacement. Arthrex Femur: 5 Tibia: 4 with medial 10 mm augment and a 14 x 50 stem PS insert: 12 Patella:36 Exam Under anesthesia: Varus deformity loss of full extension 20 degrees Procedural Notes: Significant medial sided defect tibia grade 4 arthritic changes all 3 compartments. Operative procedure: The patient was brought to the operating room and placed on the operating room table. After general anesthesia was administered the operative knee was examined. Findings were noted in the exam under anesthesia. The operative extremity was prepped and draped in sterile surgical fashion. The patient received IV antibiotics prior to skin incision. A standard midline incision was made centered over the patella. The incision was made through the skin and subcutaneous tissue. A medial parapatellar tendon approach was performed. Care was taken to preserve tissue along the medial aspect of the patella. And to protect the patella tendon. The deep MCL was released off the medial tibia. The infra patella fat pad was excised. Knee was brought into flexion. She was noted to have a large defect medially. Grade 43 changes all 3 components. The entry hole was made for the intramedullary femoral guide. The guide was seated in 6 degrees of valgus. Anterior cut was made followed by the distal cut. The ACL the PCL the medial and the lateral menisci were excised. The tibia was subluxed forward. The entry hole was made for the intramedullary tibial guide. Guide was seated to resect 2 mm off the more abnormal side. The knee was brought into flexion the distal femur was sized to a 5. The femoral guide was seated, the anterior cut was made followed by the posterior condylar cut, followed by the chamfer cuts. The finishing guide was seated the box cut was made and the lug holes were drilled. The tibia was sized, the tibial tray was seated and prepared with the large drill followed by the fin cutter, medial side was cut to fit a 10 mm augment to make up for the defect. This was used with 10 mm augment cutting guide. Trial reduction revealed full extension no varus valgus instability with the appropriate 12 PS Staci. The patella was everted and cut was made at the level of the insertion of the quadriceps and patella tendon. The patella was sized 34 the guide was seated and the lug holes are drilled. Trial reduction revealed excellent patella tracking. All trial components were removed all bony surfaces were irrigated. The tibia was cemented first followed by the femur. 12 PS Staci was seated and the knee was brought into full extension. The patella was cemented and held in place with the patellar holding clamp. After the cement had hardened, the knee sat for 2 minutes with a antibacterial solution. The knee was then irrigated out with 2 L of pulse irrigation. The extensor mechanism was closed with #2 FiberWire suture and #2 PDS suture. The subcutaneous tissue was then irrigated and closed deep with #1 PDS suture superficially with 0 PDS suture and skin was closed with skin zurdo. The patient was then placed in a sterile dressing and a postoperative brace extubated and transferred to recovery room in stable condition. Anesthesia: BIBIA Surgeon: Sae Damon Was there an support assistant present: No Estimated blood loss (cc): 200 Condition: stable Disposition: PACU
[2017-12-04] MEDS ORDERED: EPHEDrine 50 MG/ML VIAL ONE (15:49)
[2017-12-04 16:56] LABS: Hematocrit 37.4 % (35.3-44.9); Hemoglobin 11.5 g/dL (11.5-15.4)
[2017-12-04] MEDS ORDERED: Naloxone 0.4 MG/ML INJ IVP PRN (17:08)
[2017-12-04] MEDS ORDERED: Sennosides 8.6 MG TABLET PO PRN (17:08)
[2017-12-04] MEDS ORDERED: Ondansetron 4 MG/2 ML VIAL IVP PRN (17:08)
[2017-12-04] MEDS ORDERED: MOM Conc 10 ML UD.LIQ PO PRN (17:08)
[2017-12-04] MEDS: *HR* OxyCODONE Immed Rel 5 MG TABLET PO PRN (20:25)
[2017-12-04] MEDS: Ringers Solution, Lactated 1,000 ML IVC SCH (20:36)
[2017-12-04] MEDS: Sucralfate 1 GM TABLET PO SCH (23:16)
[2017-12-04] MEDS: Cholecalciferol (D-3) 1,000 UNIT TABLET PO SCH (23:16)
[2017-12-04] MEDS: Apixaban 5 MG TABLET PO SCH (23:16)
[2017-12-04] MEDS: CeFAZolin Premix DUPLEX 2,000 MG/50 ML BAG IVPB SCH (23:17)
[2017-12-04] MEDS: Temazepam 15 MG CAPSULE PO PRN (23:22)
[2017-12-05] MEDS: (Biotin [Biotin] 5,000 MCG) PO SCH ×2 (00:50→10:30)
[2017-12-05] MEDS: *HR* OxyCODONE Immed Rel 5 MG TABLET PO PRN ×3 (00:52→14:34)
[2017-12-05] MEDS: Pregabalin 75 MG CAPSULE PO SCH ×3 (00:52→21:37)
[2017-12-05] MEDS: CeFAZolin Premix DUPLEX 2,000 MG/50 ML BAG IVPB SCH (06:04)
[2017-12-05] MEDS: *HR* OxyCODONE ER (12 HR) 10 MG TABLET PO SCH ×2 (06:04→18:02)
[2017-12-05 06:05] LABS: Hemoglobin 8.5 g/dL (11.5-15.4)
[2017-12-05 06:34] LABS: BUN/Creatinine Ratio 19 (6-26); Blood Urea Nitrogen 14 mg/dL (8-23); Calcium 8.4 mg/dL (8.6-10.3); Carbon Dioxide 28 mEq/L (23-29); Chloride 103 mEq/L (98-107); Glucose 119 mg/dL (70-105); Osmolality,Calculated 290 (280-300); Potassium 3.5 mEq/L (3.5-5.1); Sodium 139 mEq/L (136-145); eGFR For African Americans > 60 (> 60); eGFR For Non-African Americans > 60 (> 60)
--- NOTE | 2017-12-05 09:11 | Orthopedics Progress Note ---
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 Afebrile vital signs stable. Operative extremity: Neurovascularly intact Dressing clean dry and intact Calves nontender Assessment and plan: Continue with postoperative care Hematocrit 27 Objective Vital signs: Vital Signs Temp Pulse Resp BP Pulse Ox 12/05/17 07:05 97.8 F 73 16 101/56 96 12/05/17 04:32 97.7 F 64 18 98/60 95 12/05/17 00:16 97.8 F 67 20 111/63 98 12/04/17 21:30 98.0 F 62 16 120/73 100 12/04/17 19:30 97.3 F L 60 18 134/72 98 12/04/17 18:30 97.9 F 58 16 133/83 98 12/04/17 18:00 98.3 F 56 16 148/84 100 12/04/17 17:36 99 12/04/17 17:30 98.3 F 58 16 141/84 98 12/04/17 16:54 98.5 F 58 14 157/94 99 12/04/17 16:44 56 14 145/99 98 12/04/17 16:34 58 14 139/82 98 12/04/17 16:24 97.2 F L 62 16 137/78 94 12/04/17 14:38 60 18 166/83 97 12/04/17 14:26 59 18 146/91 96 12/04/17 12:35 98.5 F 64 18 180/85 90 Intake and Output 12/04/17 12/05/17 12/05/17 23:59 07:59 15:59 Intake Total 50 / 50 Output Total 400 / 400 200 / 200 Balance -350 / -350 -200 / -200 Intake: IV Fluids 50 / 50 Ancef Premix DUPLEX 2,000 mg In 50 / 50 50 ml @ 100 mls/hr IVPB Q8H CHERELLE Rx#:[id number] Output: Urine 200 / 200 0 / 0 Estimated Blood Loss 200 / 200 Straight Cath 200 / 200 Other: # Voids 1 - Labs CBC & BMP: 12/05/17 05:19 12/05/17 05:19 Labs: Abnormal lab results Hgb 8.5 g/dL (11.5-15.4) L D 12/05/17 05:19 Hct 27.0 % (35.3-44.9) L 12/05/17 05:19 Glucose 119 mg/dL (70-105) H 12/05/17 05:19 Calcium 8.4 mg/dL (8.6-10.3) L 12/05/17 05:19 - VTE Documentation of Mechanical Device: Venous foot pump, device Consult Discharge Plan - Plan Referrals: China Oliver, PAC [Physician Clinical Program Director] - 12/12/17 2:30 pm (& also, , December 19, 2017 at 11:15 AM) Sae Damon MD [Partnered Physician] - 01/01/18 5:55 pm Lio Muñoz DO [Primary Care Provider] -
--- NOTE | 2017-12-05 09:59 | Anesthesia Evaluation Post Op ---
Date of Encounter: 12/05/17 Time of Encounter: 09:59 - Vital Signs Vital Signs: Vital Signs/O2 Sat, Most Current Temp Pulse Resp BP Pulse Ox 97.8 F 73 16 101/56 96 12/05/17 07:05 12/05/17 07:05 12/05/17 07:05 12/05/17 07:05 12/05/17 07:05 - Lungs Lungs: Clear Ascult./Percussion - Airway Airway: Non-obstructed - Cardiovascular Regular Rate - Mental Status Mental Status: Alert & Oriented, Answers Appropriately - Nausea Vomiting Nausea Vomiting: Not Present
[2017-12-05] MEDS: Apixaban 5 MG TABLET PO SCH ×2 (10:28→21:37)
[2017-12-05] MEDS: Cholecalciferol (D-3) 1,000 UNIT TABLET PO SCH (10:28)
[2017-12-05] MEDS: Aspirin Enteric Coated 81 MG Tablet PO SCH (10:28)
[2017-12-05] MEDS: Sucralfate 1 GM TABLET PO SCH ×2 (10:28→21:37)
[2017-12-05] MEDS: Magnesium Oxide 400 MG TABLET PO SCH (10:29)
[2017-12-05] MEDS: Furosemide 20 MG TABLET PO SCH (10:29)
[2017-12-05] MEDS: (Mirabegron [Myrbetriq] 50 MG) PO SCH (10:30)
--- NOTE | 2017-12-05 18:26 | Event Note ---
Date of Encounter: 12/05/17 Time of Encounter: 12:50 PCR- POD#1 R TKR Damon 12/04/17 PCR - Patient seen at bedside. Pain control: Adequate Participating in PT. All questions and concerns addressed. Educated on use of incentive spirometer, ambulation, and hydration. Patient educated on post-operative restrictions and care. Addressed: Patient had bleeding develop this morning after restarting Eliquis last night. This provider was notified of patient's bleeding and at 0800 this provider evaluated patient and after cleansing of incision, placed zurdo to incision with hemostasis achieved. Pressure dressing applied. At time of this evaluation bleeding had stopped and incision was cleansed, Zipline placed, and Honeycomb applied to incision. D/C plan: [facility]
[2017-12-05] MEDS: Temazepam 15 MG CAPSULE PO PRN (21:37)
[2017-12-06] MEDS: (Biotin [Biotin] 5,000 MCG) PO SCH ×3 (00:13→22:28)
[2017-12-06 03:53] LABS: Hematocrit 23.9 % (35.3-44.9); Hemoglobin 7.6 g/dL (11.5-15.4)
[2017-12-06 04:19] LABS: BUN/Creatinine Ratio 20 (6-26); Blood Urea Nitrogen 18 mg/dL (8-23); Calcium 8.4 mg/dL (8.6-10.3); Carbon Dioxide 32 mEq/L (23-29); Chloride 104 mEq/L (98-107); Glucose 110 mg/dL (70-105); Osmolality,Calculated 293 (280-300); Potassium 3.4 mEq/L (3.5-5.1); Sodium 140 mEq/L (136-145); eGFR For African Americans > 60 (> 60); eGFR For Non-African Americans 60 (> 60)
[2017-12-06] MEDS: *HR* OxyCODONE ER (12 HR) 10 MG TABLET PO SCH ×2 (06:11→17:55)
[2017-12-06] MEDS ORDERED: Furosemide 20 MG/2 ML VIAL IVP ONE (06:45)
[2017-12-06] MEDS: Furosemide 20 MG TABLET PO SCH (07:50)
[2017-12-06] MEDS: Pregabalin 75 MG CAPSULE PO SCH ×2 (07:50→22:25)
[2017-12-06] MEDS: Sucralfate 1 GM TABLET PO SCH ×2 (07:50→22:26)
[2017-12-06] MEDS: Aspirin Enteric Coated 81 MG Tablet PO SCH (07:50)
[2017-12-06] MEDS: *HR* OxyCODONE Immed Rel 5 MG TABLET PO PRN ×3 (07:50→22:30)
[2017-12-06] MEDS: Cholecalciferol (D-3) 1,000 UNIT TABLET PO SCH (07:51)
[2017-12-06] MEDS: Magnesium Oxide 400 MG TABLET PO SCH (07:51)
[2017-12-06] MEDS: (Mirabegron [Myrbetriq] 50 MG) PO SCH (07:52)
[2017-12-06] MEDS: Apixaban 5 MG TABLET PO SCH ×2 (07:52→22:26)
--- NOTE | 2017-12-06 08:37 | Orthopedics Progress Note ---
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 Afebrile vital signs stable. Operative extremity: Neurovascularly intact Dressing clean dry and intact Calves nontender Assessment and plan: Continue with postoperative care Hb 7.6 transfuse 2 units Objective Vital signs: Vital Signs Temp Pulse Resp BP Pulse Ox 12/06/17 06:38 98.2 F 62 18 146/74 95 12/06/17 05:15 99.3 F 62 12 127/64 94 12/05/17 23:37 98.1 F 97 17 127/68 97 12/05/17 22:00 97 12/05/17 19:28 97.6 F 66 16 109/60 97 12/05/17 14:12 98.5 F 94 16 98/56 99 12/05/17 10:40 100 12/05/17 10:34 98.2 F 89 18 93/58 94 Intake and Output 12/05/17 12/06/17 12/06/17 23:59 07:59 15:59 Intake Total 200 / 200 400 / 400 Output Total 575 / 575 400 / 400 Balance -375 / -375 400 / 400 -400 / -400 Intake: Oral 200 / 200 400 / 400 Output: Urine 575 / 575 400 / 400 Other: Stool Size Smear Stool Consistency soft Stool Characteristics Normal for Patient Stool Color Brown # Voids 2 1 - Labs CBC & BMP: 12/06/17 03:22 12/06/17 03:22 Labs: Abnormal lab results Hgb 7.6 g/dL (11.5-15.4) L 12/06/17 03:22 Hct 23.9 % (35.3-44.9) L 12/06/17 03:22 Potassium 3.4 mEq/L (3.5-5.1) L 12/06/17 03:22 Carbon Dioxide 32 mEq/L (23-29) H 12/06/17 03:22 Glucose 110 mg/dL (70-105) H 12/06/17 03:22 Calcium 8.4 mg/dL (8.6-10.3) L 12/06/17 03:22 - VTE Documentation of Mechanical Device: Venous foot pump, device Consult Discharge Plan - Plan Referrals: China Oliver, PAC [Physician Batch Freezer Operator] - 12/12/17 2:30 pm (& also, , December 19, 2017 at 11:15 AM) Sae Damon MD [Partnered Physician] - 01/01/18 5:55 pm Lio Muñoz, DO [Primary Care Provider] -
[2017-12-06] MEDS ORDERED: 0.9 % Sodium Chloride 250 ML ONE ×2 (11:07→15:44)
[2017-12-06] MEDS: Ringers Solution, Lactated 1,000 ML IVC SCH (12:15)
--- NOTE | 2017-12-06 17:14 | Event Note ---
Date of Encounter: 12/06/17 Time of Encounter: 12:30 PCR- POD#2 R TKR Nelson 12/04/17 PCR - Patient seen at bedside. Labs: H/H - 7.6/23.9 Pain control: Adequate Participating in PT. All questions and concerns addressed. Educated on use of incentive spirometer, ambulation, and hydration. Patient educated on post-operative restrictions and care. Addressed: Hoople and new Zipline/Honeycomb applied to incision yesterday for excess bleeding. minimal drainage on dressing today. Currently receiving 2 unit RBC D/C plan: pending acceptance to [facility]
[2017-12-06] MEDS: Temazepam 15 MG CAPSULE PO PRN (22:44)
[2017-12-07] MEDS: *HR* OxyCODONE ER (12 HR) 10 MG TABLET PO SCH ×2 (05:43→07:13)
--- NOTE | 2017-12-07 06:52 | Orthopedics Progress Note ---
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 Afebrile vital signs stable. Operative extremity: Neurovascularly intact Dressing clean dry and intact Calves nontender Assessment and plan: Continue with postoperative care Discharge today Objective Vital signs: Vital Signs Temp Pulse Resp BP Pulse Ox 12/06/17 23:20 98.5 F 62 17 129/76 94 12/06/17 21:18 98.3 F 64 16 94/57 94 12/06/17 19:08 99.4 F 61 16 114/65 99 12/06/17 16:10 98.7 F 60 12 112/70 98 12/06/17 15:55 98.5 F 57 16 102/56 98 12/06/17 15:05 98.6 F 52 16 128/68 93 12/06/17 15:00 98.6 F 64 16 106/59 97 12/06/17 12:36 98.8 F 64 16 126/72 12/06/17 11:51 98.0 F 61 16 104/61 100 12/06/17 11:36 98.4 F 97 16 90/49 100 12/06/17 10:41 98.2 F 86 18 95/57 99 Intake and Output 12/06/17 12/06/17 12/07/17 15:59 23:59 07:59 Intake Total 1020 / 1020 830 / 830 350 / 350 Output Total 400 / 400 650 / 650 200 / 200 Balance 620 / 620 180 / 180 150 / 150 Intake: Oral 320 / 320 530 / 530 350 / 350 Blood Product 700 / 700 300 / 300 Rbcs Leuko Poor As-1 Unit 700 / 700 [id number] Rbcs Leuko Poor As-1 Unit 0 / 0 300 / 300 [id number] Output: Urine 400 / 400 650 / 650 200 / 200 Other: Meal Breakfast Dinner Percent of Meal Consumed 95% 50% # Voids 2 # Bowel Movements 0 - Labs CBC & BMP: 12/06/17 03:22 12/06/17 03:22 Labs: Abnormal lab results Hgb 7.6 g/dL (11.5-15.4) L 12/06/17 03:22 Hct 23.9 % (35.3-44.9) L 12/06/17 03:22 Potassium 3.4 mEq/L (3.5-5.1) L 12/06/17 03:22 Carbon Dioxide 32 mEq/L (23-29) H 12/06/17 03:22 Glucose 110 mg/dL (70-105) H 12/06/17 03:22 Calcium 8.4 mg/dL (8.6-10.3) L 12/06/17 03:22 - VTE Documentation of Mechanical Device: Venous foot pump, device Consult Discharge Plan - Plan Referrals: China Oliver, PAC [Physician Lab Courier] - 12/12/17 2:30 pm (& also, , December 19, 2017 at 11:15 AM) Sae Damon MD [Partnered Physician] - 01/01/18 5:55 pm Lio Muñoz DO [Primary Care Provider] -
[2017-12-07 07:08] VITALS: BP 130/67
[2017-12-07] MEDS: Magnesium Oxide 400 MG TABLET PO SCH (08:43)
[2017-12-07] MEDS: Cholecalciferol (D-3) 1,000 UNIT TABLET PO SCH (08:43)
[2017-12-07] MEDS: Aspirin Enteric Coated 81 MG Tablet PO SCH (08:43)
[2017-12-07] MEDS: Furosemide 20 MG TABLET PO SCH (08:43)
[2017-12-07] MEDS: Apixaban 5 MG TABLET PO SCH (08:43)
[2017-12-07] MEDS: Sucralfate 1 GM TABLET PO SCH (08:43)
[2017-12-07] MEDS: (Biotin [Biotin] 5,000 MCG) PO SCH (08:44)
[2017-12-07] MEDS: (Mirabegron [Myrbetriq] 50 MG) PO SCH (08:44)
[2017-12-07] MEDS: Pregabalin 75 MG CAPSULE PO SCH (08:44)
[2017-12-07] MEDS: *HR* OxyCODONE Immed Rel 5 MG TABLET PO PRN ×2 (08:49→13:48)
[2017-12-07 10:23] LABS: Hematocrit 29.8 % (35.3-44.9)
[2017-12-07 10:43] LABS: Hemoglobin 9.3 g/dL (11.5-15.4)
== END 2017-12-07 14:10 | DRG 470 ==
LOC: SAMDAY 12:11 → 3NENU 17:05
PROVIDERS: ADMIT Orthopaedic Surgery; ATTEND Orthopaedic Surgery

== ENCOUNTER 2018-01-19 01:29 | Inpatient (IN) ==
[2018-01-19] MEDS ORDERED: Ondansetron ODT 4 MG TAB.RAPDIS PO PRN (07:57)
--- NOTE | 2018-01-19 08:08 | Internal Med History&Physical ---
Date of Encounter: 01/19/18 Time of Encounter: 08:08 Assessment and Plan (1) Infection of lumbar spine Current visit: Yes Status: Acute Patient developed worsening bilateral lower back pain, after epidural injection on Saturday. But she has no fevers normal white count, normal ESR, CRP. We will consult a pain specialist to Dr. Silva. We will draw blood cultures hold antibiotics and to talk to Dr. Silva (2) Atrial fibrillation Current visit: Yes Status: Chronic Current in normal sinus rhythm, continue Sotalol, hold eliquis due to spine infection Qualifiers: Atrial fibrillation type: unspecified Qualified Code(s): I48.91 - Unspecified atrial fibrillation (3) CAD (coronary artery disease) Current visit: Yes Status: Chronic Qualifiers: Coronary Disease-Associated Artery/Lesion type: unspecified vessel or lesion type [place] vs. 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 Hardwick is a 83 year old female who has history of hypertension hyperlipidemia atrial fibrillation, GERD depression urinary incontinence presented to [facility] emergency room for severe lower back pain. He has chronic lower back pain, had a multiple back surgeries, she has been seen pain specialist Dr. Silva on Saturday, had the bilateral epidural injection. Patient states after epidural injection, she went home, the pain become progressively worse over last 5 days. Pain is sharp and located from bilateral lower back, radiating down to bilateral hip and the lateral legs, and to do the ankles, sharp constant 10 out of 10, any movement makes it worse. She also develop low-grade fevers, and chills for 2 days. She has urinary incontinence , denies bowel incontinence. She is able to move both legs. She has severe tenderness to bilateral SI joints. MRI results showing edema and abnormal enhancement in the S1 and S2 vertebral bodies with extension to the right sacral alar, infections etiology osteomyelitis is suspected. No definitive signs focal epidural correction. Patient called to Dr. Silva office and was told to transfer here and the Dr. Silva partners will cover today. Patient denies headache, no chest pain and shortness of breasts, no abdominal pain diarrhea or constipation. She has no focal neurological deficiency. MRI is resulted reviewed. UA negative for infections surgeries 14 lactate 1 CRP less than 0.29 potassium 3.3 creatinine 0.9 WBC 8.5. Past Med Surg Social Fam HX - Past Medical History Medical history: atrial fibrillation, GERD, hyperlipidemia, hypertension Psychiatric history: anxiety, depression - Past Surgical History Surgical History: knee replacement - Social History Smoking Status: Never smoker Smokeless Tobacco Status: No Alcohol use: none Drug use: none Internal Medicine - H&P: Meds Apixaban [Eliquis] 5 mg PO BID 09/30/17 [History] Aspirin [Lo-Dose Aspirin EC] 81 mg PO DAILY 09/30/17 [History] Biotin 5,000 mcg PO DAILY 09/30/17 [History] Calcium Carb,Cit/D3/Phytostrol [Citracal D + Heart Health Tab] 1 tab PO DAILY [History] Cholecalciferol (D-3) [Vitamin D] 1,000 unit PO BID 09/30/17 [History] Escitalopram [Lexapro] 10 mg PO DAILY 09/30/17 [History] Lisinopril [Zestril] 5 mg PO DAILY 09/30/17 [History] Magnesium Oxide [Magnesium] 400 mg PO DAILY 09/30/17 [History] Meloxicam [Mobic] 15 mg PO DAILY 09/30/17 [History] Mirabegron [Myrbetriq] 50 mg PO DAILY 09/30/17 [History] Ondansetron HCl [Zofran] 4 mg PO Q6H PRN 09/30/17 [History] Oxycodone HCl [Oxycodone HCl ER] 30 mg PO Q12H 09/30/17 [History] Pantoprazole Sodium [Protonix] 40 mg PO DAILY 09/30/17 [History] Potassium Chloride [Klor-Con 10] 10 meq PO DAILY 09/30/17 [History] Pregabalin [Lyrica] 150 mg PO BID 09/30/17 [History] Rosuvastatin Calcium [Crestor] 10 mg PO HS 09/30/17 [History] Sotalol [Betapace] 80 mg PO DAILY 09/30/17 [History] Sucralfate [Carafate] 1 gm PO Q12H 09/30/17 [History] Temazepam [Restoril] 15 mg PO HS 09/30/17 [History] Ferrous Sulfate [Iron] 325 mg PO DAILY 12/04/17 [History] Furosemide [Lasix] 20 mg PO DAILY 12/04/17 [History] Polyethylene Glycol 3350 [MiraLAX] 17 gm PO DAILY 01/19/18 [History] 3 Allergy/AdvReac Type Severity Reaction Status Date / Time No Known Allergies Allergy Verified 12/04/17 13:08 All Systems PM: A 10-system review of systems was performed and is negative for pertinent findings except as documented above in the HPI. - Constitutional Vitals: Temp Pulse Resp BP Pulse Ox 98.3 F 56 18 197/90 94 01/19/18 06:50 01/19/18 06:50 01/19/18 06:50 01/19/18 06:50 01/19/18 06:50 General appearance: Present: cooperative, A&O X 3, pleasant Exam: CONSTITUTIONAL: Patient appears as an age appropriate female well developed, in no acute distress. EYES Clear sclerae, bilateral pupils are equal, reactive to light and accommodation. Extraocular movements are intact RESPIRATORY: No accessory muscle use, bilateral clear to auscultation, no wheezing, no crackles/rales. CARDIOVASCULAR: Regular heart rate, normal S1 and S2, no murmurs GASTROINTESTINAL: bowel sounds present, soft, no tenderness. No hepatosplenomegaly. No bilateral CVA tenderness MUSCULOSKELETAL: Joints in normal range of motion, no clubbing, no edema, no cyanosis. Bilateral peripheral pulses 2+ LYMPHATIC no lymphadenopathy in neck, groin and axilla bilaterally, no thyromegaly. NEUROLOGIC: CN II to XII are grossly intact, no focal neurological deficit. Deep tendon reflexes 2+ bilaterally. Normal light touch sensation to upper and lower extremity PSYCHIATRIC: Oriented x3, with good insight, mood is euthymic. No hallucinations or delusions. SKIN: Skin warm and dry, no rashes, no open wound.
[2018-01-19] MEDS ORDERED: Naloxone 0.4 MG/ML INJ IVP PRN (08:34)
[2018-01-19] MEDS ORDERED: Piperacillin/Tazobactam 4.5 GM in 0.9 % Sodium Chloride Mini Bag 100 ML IVPB ONE (09:09)
[2018-01-19] MEDS ORDERED: Aspirin Enteric Coated 81 MG Tablet PO SCH (09:15)
[2018-01-19] MEDS: *HR* OxyCODONE Immed Rel 5 MG TABLET PO PRN ×2 (09:26→14:24)
[2018-01-19] MEDS: Pregabalin 75 MG CAPSULE PO SCH ×2 (09:28→20:04)
[2018-01-19] MEDS: Sucralfate 1 GM TABLET PO SCH ×2 (09:28→20:03)
[2018-01-19] MEDS: Furosemide 20 MG TABLET PO SCH (09:28)
[2018-01-19] MEDS: Magnesium Oxide 400 MG TABLET PO SCH (09:28)
[2018-01-19] MEDS: CALCIUM CARB CIT PO SCH (09:29)
[2018-01-19] MEDS: D3 PO SCH (09:29)
[2018-01-19] MEDS: Cholecalciferol (D-3) 1,000 UNIT TABLET PO SCH ×2 (09:29→20:03)
[2018-01-19] MEDS: PHYTOSTROL PO SCH (09:29)
[2018-01-19] MEDS: (Mirabegron [Myrbetriq] 50 MG) PO SCH (09:29)
[2018-01-19 09:48] LABS: INR 1.3; Prothrombin Time 13.6 Seconds (9.4-12.1)
[2018-01-19 09:51] LABS: Activated Partial Thrombo Time 25.6 Seconds (26.0-36.0)
[2018-01-19 09:54] LABS: C-Reactive Protein < 5 mg/L (Less than 10)
[2018-01-19 10:21] LABS: BUN/Creatinine Ratio 16 (6-26); Blood Urea Nitrogen 13 mg/dL (8-23); eGFR For African Americans > 60 (> 60); eGFR For Non-African Americans > 60 (> 60)
[2018-01-19] MEDS: Apixaban 5 MG TABLET PO SCH ×2 (10:32→20:03)
[2018-01-19] MEDS: *HR* OxyCODONE ER (12 HR) 10 MG TABLET PO SCH ×2 (10:32→20:03)
[2018-01-19] MEDS: Piperacillin/Tazobactam 3.375 GM in 0.9 % Sodium Chloride Mini Bag 100 ML IVPB SCH ×2 (10:32→17:19)
[2018-01-19] MEDS ORDERED: Vancomycin 1 EACH in 0.9 % Sodium Chloride 250 ML IVPB SCH (11:00)
[2018-01-19] MEDS ORDERED: *HR* Heparin 5,000 UNIT/ML VIAL SQ SCH (16:00)
[2018-01-19] MEDS: Temazepam 15 MG CAPSULE PO SCH (21:16)
[2018-01-20] MEDS: *HR* OxyCODONE Immed Rel 5 MG TABLET PO PRN ×4 (00:39→18:33)
[2018-01-20] MEDS: Piperacillin/Tazobactam 3.375 GM in 0.9 % Sodium Chloride Mini Bag 100 ML IVPB SCH ×2 (01:50→10:50)
[2018-01-20 03:29] LABS: Hematocrit 39.4 % (35.3-44.9); Hemoglobin 12.5 g/dL (11.5-15.4); Mean Corpuscular HGB Conc 31.7 g/dL (31.6-35.5); Mean Corpuscular Hemoglobin 29.5 pg (28.0-33.3); Mean Corpuscular Volume 92.9 fL (83.0-100.0); Mean Platelet Volume 10.7 fL (9.4-12.4); Platelet Count 225 K/mcL (140-400); Red Blood Count 4.24 M/mcL (3.82-4.97); Red Cell Distribution Width 15.3 % (11.5-14.5)
[2018-01-20 03:50] LABS: BUN/Creatinine Ratio 22 (6-26); Blood Urea Nitrogen 18 mg/dL (8-23); Calcium 8.9 mg/dL (8.6-10.3); Carbon Dioxide 29 mEq/L (23-29); Chloride 103 mEq/L (98-107); Chol/HDL Ratio 2.2 (0-4.9); Cholesterol 132 mg/dL (< 200); Glucose 114 mg/dL (70-105); HDL Cholesterol 59 mg/dL (40-59); LDL Cholesterol,Calculated 55 mg/dL (0-99); Magnesium 2.2 mg/dL (1.6-2.6); Osmolality,Calculated 291 (280-300); Potassium 3.4 mEq/L (3.5-5.1); Sodium 139 mEq/L (136-145); Triglycerides 91 mg/dL (< 150); eGFR For African Americans > 60 (> 60); eGFR For Non-African Americans > 60 (> 60)
[2018-01-20] MEDS: Magnesium Oxide 400 MG TABLET PO SCH (08:22)
[2018-01-20] MEDS: *HR* OxyCODONE ER (12 HR) 10 MG TABLET PO SCH ×2 (08:22→20:18)
[2018-01-20] MEDS: Cholecalciferol (D-3) 1,000 UNIT TABLET PO SCH ×2 (08:22→20:18)
[2018-01-20] MEDS: Pregabalin 75 MG CAPSULE PO SCH ×2 (08:22→20:17)
[2018-01-20] MEDS: D3 PO SCH (08:23)
[2018-01-20] MEDS: Apixaban 5 MG TABLET PO SCH (08:23)
[2018-01-20] MEDS: PHYTOSTROL PO SCH (08:23)
[2018-01-20] MEDS: Furosemide 20 MG TABLET PO SCH (08:23)
[2018-01-20] MEDS: Sucralfate 1 GM TABLET PO SCH ×2 (08:23→20:17)
[2018-01-20] MEDS: (Mirabegron [Myrbetriq] 50 MG) PO SCH (08:23)
[2018-01-20] MEDS: CALCIUM CARB CIT PO SCH (08:23)
[2018-01-20] MEDS ORDERED: Aspirin Enteric Coated 81 MG Tablet PO SCH (09:00)
--- NOTE | 2018-01-20 09:14 | Pain Management Consultation ---
Date of Encounter: 01/20/18 Time of Encounter: 07:50 Assessment and Plan (1) Sacroiliitis Current Visit: Yes Status: Acute This patient is having acute on chronic lower back pain after a sacroiliac joint injection. 1. Recommend consultation by infectious disease given MRI findings which are concerning. In my opinion, the MRI finding does not correlate with the site of the patient's injection and seems to be unrelated. However, the concern for osteomyelitis on MRI and the lack of image documentation for the injection prompt me to be concerned about osteomyelitis being the root cause of her current hospitalization, although the risk for infection is still considered remote. 2. Recommend PT evaluation for ambulation. 3. Continue oral analgesics. 4. I will discuss the case with Dr. Cortez. The assessment and plan as outlined above was discussed with the patient and/or family members who expressed understanding and agreement. All questions were answered. History of Present Illness Chief complaint: pain after injection HPI: Ms. Hardwick is a 83 year old female who has suffered with chronic low back pain for several years. On Saturday of last week, the patient states that she underwent a sacroiliac joint injection procedure on both the left and right side of her lower back. The procedure was performed by Dr. Cortez in the office. Several days after the injection, specifically on Saturday, the patient began to complain of nausea and vomiting as well as increased pain at the injection sites with radiating pain down the backs of both legs. She denies pain radiating into her legs directly after the injection on Saturday. The radiating pain began on Saturday. She threw up once in the morning and this prompted her to go to the local emergency room where an MRI was performed. She is not complaining of 10/10 pain upon standing. When lying flat, the pain is much less, 5/10. Walking definitely increases pain and is deemed by her to be impossible. She denies fever, chills, nausea, vomiting now. She describes the pain as a sharp sensation. Past Med Surg Social Fam HX - Past Medical History Medical history: atrial fibrillation, GERD, hyperlipidemia, hypertension Psychiatric history: anxiety, depression - Past Surgical History Surgical History: knee replacement - Social History Smoking Status: Never smoker Smokeless Tobacco Status: No Alcohol use: none Drug use: none Medications and Allergies Apixaban [Eliquis] 5 mg PO BID 09/30/17 [History] Aspirin [Lo-Dose Aspirin EC] 81 mg PO DAILY 09/30/17 [History] Biotin 5,000 mcg PO DAILY 09/30/17 [History] Calcium Carb,Cit/D3/Phytostrol [Citracal D + Heart Health Tab] 1 tab PO DAILY [History] Cholecalciferol (D-3) [Vitamin D] 1,000 unit PO BID 09/30/17 [History] Escitalopram [Lexapro] 10 mg PO DAILY 09/30/17 [History] Lisinopril [Zestril] 5 mg PO DAILY 09/30/17 [History] Magnesium Oxide [Magnesium] 400 mg PO DAILY 09/30/17 [History] Mirabegron [Myrbetriq] 50 mg PO DAILY 09/30/17 [History] Ondansetron HCl [Zofran] 4 mg PO Q6H PRN 09/30/17 [History] Oxycodone HCl [Oxycodone HCl ER] 30 mg PO Q12H 09/30/17 [History] Pantoprazole Sodium [Protonix] 40 mg PO DAILY 09/30/17 [History] Potassium Chloride [Klor-Con 10] 10 meq PO DAILY 09/30/17 [History] Pregabalin [Lyrica] 150 mg PO BID 09/30/17 [History] Rosuvastatin Calcium [Crestor] 10 mg PO HS 09/30/17 [History] Sotalol [Betapace] 80 mg PO DAILY 09/30/17 [History] Sucralfate [Carafate] 1 gm PO Q12H 09/30/17 [History] Temazepam [Restoril] 15 mg PO HS 09/30/17 [History] Ferrous Sulfate [Iron] 325 mg PO DAILY 12/04/17 [History] Furosemide [Lasix] 20 mg PO DAILY 12/04/17 [History] Polyethylene Glycol 3350 [MiraLAX] 17 gm PO DAILY 01/19/18 [History] 3 Allergy/AdvReac Type Severity Reaction Status Date / Time No Known Allergies Allergy Verified 12/04/17 13:08 Review of Systems - Constitutional Constitutional ROS IM: no photophobia, no phonophobia, no daytime sleepiness, no fever(s), no stops breathing during sleep - EENT Nose, mouth and throat: no headache(s), no neck pain, no neck trauma - Cardiovascular Cardiovascular ROS: no chest pain, no leg edema, no lightheadedness - Respiratory Respiratory: no pain on inspiration, no pain with cough - Gastrointestinal Gastrointestinal: no abdominal pain, no constipation, no diarrhea, no heartburn - Genitourinary Genitourinary ROS: no difficulty urinating, no flank pain, no urinary hesitancy - Musculoskeletal Musculoskeletal ROS: no muscle weakness, no numbness, no radiating pain into limb, no tingling - Integumentary Integumentary: no erythema, no lesions, no swelling - Neurological Neurological ROS: no abnormal gait, no behavioral changes, no focal weakness, no radicular pain - Psychiatric Psychiatric general: no anxiety, no confusion, no depression - Hematologic/Lymphatic Hematologic/Lymphatic pediatric: no easy bleeding, no easy bruising Physical Exam Initial Vital Signs Temp Pulse Resp BP Pulse Ox 98.4 F 56 14 176/76 93 01/19/18 04:15 01/19/18 04:15 01/19/18 04:15 01/19/18 04:15 01/19/18 04:15 - Additional Findings EYES:: pupils equal and round, no myosis. SKIN:: no areas of echymoses or petechiae CARDIOVASCULAR:: regular rate and rhythm, no murmurs PULMONARY:: Quiet, normal respiratory pattern. GASTROINTESTINAL:: nontender abdomen MUSCULOSKELETAL INSPECTION:: An area of mild ecchymosis is present over each sacral sulcus. No erythema. PALPATION:: Palpation in the left and right sacral sulci reproduces the patient's pain. She feels pain traveling down the back sides of both thighs with this exam. ROM:: Active flexion and extension are reduced in the lumbar area. Active Rotation is reduced in the lumbar area. STRENGTH:: RIGHT hip flexors: 5/5 :: LEFT hip flexors: 5/5 RIGHT hip adduction 5/5 :: LEFT hip adduction 5/5 RIGHT hip abduction 5/5 :: LEFT hip abduction 5/5 RIGHT knee extension 5/5 :: LEFT knee extension 5/5 RIGHT knee flexion 5/5 :: LEFT knee flexion 5/5 RIGHT ankle dorsiflexion 5/5 :: LEFT ankle dorsiflexion 5/5 RIGHT ankle plantarflexion 5/5 :: LEFT ankle plantarflexion 5/5 RIGHT great toe dorsiflexion 5/5 :: LEFT great toe dorsiflexion 5/5 RIGHT great toe plantarflexion 5/5 :: LEFT great toe plantarflexion 5/5 STRAIGHT LEG RAISE:: LLE is negative at 120 degrees. RLE is negative at 120 degrees. NEUROLOGIC ENSATION:: hypesthesia is not noted in lower extremity dermatomes. However, there is mild dysesthesia and hyperalgesia with palpation of the L5 and S1 dermatomes bilaterally both proximal and distal to both knees SIGNS OF NEUROVASCULAR COMPRESSION Spasticity:: none Atrophy:: not present in UE or LE musculature Fasciculation:: not present in UE or LE musculature PSYCHIATRIC:: ORIENTATION:: awake and alert. INSIGHT:: good awareness of illness. AFFECT:: pleasant. Radiology Images Viewed By Me:: July 2012 lumbar radiograph shows prior kyphoplasty procedures at L1 and L2 with extensive laminotomies in the lower lumbar spine. Records Review by Me: Procedure note from sacroiliac joint injection bilaterally reviewed. There is no report of paresthesia during injection. I have reviewed and agree with information documented in the scribed documentation, ROS, patient medications, allergies, medical history, surgical history, social history, and family history. Results - Labs 01/20/18 02:51 01/20/18 02:51 Abnormal lab results RDW 15.3 % (11.5-14.5) H 01/20/18 02:51 PT 13.6 Seconds (9.4-12.1) H 01/19/18 09:16 APTT 25.6 Seconds (26.0-36.0) L 01/19/18 09:16 Potassium 3.4 mEq/L (3.5-5.1) L 01/20/18 02:51 Glucose 114 mg/dL (70-105) H 01/20/18 02:51 Diabetes panel 01/19/18 01/20/18 Range/Units 09:16 02:51 Sodium 139 (136-145) mEq/L Potassium 3.4 L (3.5-5.1) mEq/L Chloride 103 (98-107) mEq/L Carbon Dioxide 29 (23-29) mEq/L BUN 13 18 (8-23) mg/dL Creatinine 0.79 0.83 (0.60-1.20) mg/dL Glucose 114 H (70-105) mg/dL Calcium 8.9 (8.6-10.3) mg/dL Triglycerides 91 (< 150) mg/dL HDL Cholesterol 59 (40-59) mg/dL Calcium panel 01/20/18 Range/Units 02:51 Calcium 8.9 (8.6-10.3) mg/dL Pituitary panel 01/19/18 01/20/18 Range/Units 09:16 02:51 Sodium 139 (136-145) mEq/L Potassium 3.4 L (3.5-5.1) mEq/L Chloride 103 (98-107) mEq/L Carbon Dioxide 29 (23-29) mEq/L BUN 13 18 (8-23) mg/dL Creatinine 0.79 0.83 (0.60-1.20) mg/dL Glucose 114 H (70-105) mg/dL Calcium 8.9 (8.6-10.3) mg/dL Adrenal panel 01/19/18 01/20/18 Range/Units 09:16 02:51 Sodium 139 (136-145) mEq/L Potassium 3.4 L (3.5-5.1) mEq/L Chloride 103 (98-107) mEq/L Carbon Dioxide 29 (23-29) mEq/L BUN 13 18 (8-23) mg/dL Creatinine 0.79 0.83 (0.60-1.20) mg/dL Glucose 114 H (70-105) mg/dL Calcium 8.9 (8.6-10.3) mg/dL All other labs normal. - VTE Documentation of Mechanical Device: Venous foot pump, device Consult Discharge Plan - Plan Referrals: Lio Muñoz MD [Primary Care Provider] -
--- NOTE | 2018-01-20 12:40 | Electrocardiograph Report ---
[address] [address] Test Date: 2018-01-19 Pat Name: Amee Hardwick Department: [id number] Room: [facility] Gender: F [employer]: : 1935 Requested By: Srinath Baptiste Order Number: [id number] Reading MD: Angel Morgan Measurements Intervals [place] Rate: 66 P: 37 [place]: 186 QRS: -23 QRSD: 97 T: 37 QT: 408 QTc: 421 Interpretive Statements SINUS RHYTHM BORDERLINE LEFT AXIS DEVIATION LEFT VENTRICULAR HYPERTROPHY AND ST-T CHANGE BASELINE ARTIFACT BASELINE ARTIFACT COMPLICATES ACCURATE INTERPRETATION Electronically Signed On 01-20-2018 12:38:46 EDT by Angel Morgan
--- NOTE | 2018-01-20 16:52 | Internal Med Progress Note ---
<Rashaun Polk - Last Filed: 01/20/18 16:45> Date of Encounter: 01/20/18 Time of Encounter: 16:45 - Assessment and plan (1) Infection of lumbar spine Current Visit: Yes Status: Suspected Assessment and plan: [facility] MRI reading reports possible osteomyelitis. Patient had bilateral sacroiliac joint injections last Saturday by Dr. Cortez and thereafter developed acute low back pain with radiation down both legs. Patient is afebrile, non-tachycardic, without leukocytosis Currently she is on vancomycin and Zosyn. Duration of antibiotic depends on clinical picture Blood cultures are pending Pain specialist evaluated patient and reports she likely has sacroiliitis but to recommend ID consult. Received [facility] MRI with radiologist Dr. Koroma who stated pelvis/ sacrum would be best better visualized by MRI pelvis with and without contrast. 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 on Eliquis at home which is discontinued if patient may need procedure for evaluation of possible infection Qualifiers: Atrial fibrillation type: unspecified Qualified Code(s): I48.91 - Unspecified atrial fibrillation (4) CAD (coronary artery disease) Current Visit: Yes Status: Chronic Assessment and plan: denies chest pain continue statin, aspirin Qualifiers: Coronary Disease-Associated Artery/Lesion type: unspecified vessel or lesion type [place] vs. 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 continue OxyContin and Roxicodone Qualifiers: Chronic pain type: other chronic pain Qualified Code(s): G89.29 - Other chronic pain (6) HLD (hyperlipidemia) Current Visit: Yes Status: Chronic Assessment and plan: Continue rosuvastatin Qualifiers: Hyperlipidemia type: unspecified Qualified Code(s): E78.5 - Hyperlipidemia , unspecified (7) HTN (hypertension) Current Visit: Yes Status: Chronic Assessment and plan: Stable continue Lasix, lisinopril Qualifiers: Hypertension type: essential hypertension Qualified Code(s): I10 - Essential (primary) hypertension - Subjective Interval history: Patient continues to report sharp low back pain that radiates down both lower extremities and worse with movement. Patient denies headache, chills, sore throat, sputum production, ear pain, eye pain, chest pain, palpitations, shortness of breath, abdominal pain, nausea, vomiting, diarrhea, rash. - Constitutional Vitals: Temp Pulse Resp BP Pulse Ox 98.4 F 58 16 143/79 93 01/20/18 16:36 01/20/18 16:36 01/20/18 16:36 01/20/18 16:36 01/20/18 16:36 General appearance: Present: cooperative, A&O X 3, pleasant - Other Additional findings: General: pleasant without distress HEENT: Head atraumatic, normocephalic, EOMI, PERRL, neck nontender to palpation , absent lymphadenopathy, Moist Mucous Membranes, Heart: Regular rate and rhythm with no murmur Lungs: Clear to auscultation bilaterally Abdomen: Soft nontender, nondistended positive bowel sounds Skin: warm and dry Extremities: Absent pedal edema, Back: large scar from previous back surgeries, absent erythema, inflammation, tenderness to palpation. Neuro: Cranial nerves II through XII intact, UE and LE sensation equal bilaterally, UE and LEstrength 5/5, alert oriented 3, Vascular: Pedal and radial pulses 2 out of 4 Internal Medicine: Result - Labs CBC & Chem 7: 01/20/18 02:51 01/20/18 02:51 Labs: Short CBC 01/20/18 Range/Units 02:51 WBC 8.6 (4.3-11.1) K/mcL Hgb 12.5 (11.5-15.4) g/dL Hct 39.4 (35.3-44.9) % Plt Count 225 (140-400) K/mcL BMP 01/20/18 02:51 Sodium 139 Potassium 3.4 L Chloride 103 Carbon Dioxide 29 BUN 18 Creatinine 0.83 Glucose 114 H Calcium 8.9 - ABG Interpretation ABG results: PT/INR, D-dimer PT 13.6 Seconds (9.4-12.1) H 01/19/18 09:16 - VTE Documentation of Mechanical Device: Venous foot pump, device Consult Discharge Plan - Plan Referrals: Lio Muñoz MD [Primary Care Provider] - <Tee Valdez - Last Filed: 01/20/18 17:56> Date of Encounter: 01/20/18 - Constitutional Vitals: Temp Pulse Resp BP Pulse Ox 98.4 F 58 16 143/79 93 01/20/18 16:36 01/20/18 16:36 01/20/18 16:36 01/20/18 16:36 01/20/18 16:36 Internal Medicine: Result - Labs CBC & Chem 7: 01/20/18 02:51 01/20/18 02:51 Labs: Short CBC 01/20/18 Range/Units 02:51 WBC 8.6 (4.3-11.1) K/mcL Hgb 12.5 (11.5-15.4) g/dL Hct 39.4 (35.3-44.9) % Plt Count 225 (140-400) K/mcL BMP 01/20/18 02:51 Sodium 139 Potassium 3.4 L Chloride 103 Carbon Dioxide 29 BUN 18 Creatinine 0.83 Glucose 114 H Calcium 8.9 - ABG Interpretation ABG results: PT/INR, D-dimer PT 13.6 Seconds (9.4-12.1) H 01/19/18 09:16 - Attending Attestation I performed an independent interview and examine this patient. I agree with the findings, assessment, and plan of Dr. Polk, internal medicine buyer internship. My input is reflected in his note. Infectious disease consult has been ordered for possible osteomyelitis. MRI was discussed with the radiologist who recommended an MRI of the pelvis as well. This is ordered. Patient remains hemodynamically stable. Still has significant amount of pain. We did hold aspirin and risk for now given potential need for intervention of suspected osteomyelitis. Did discuss risk of stroke with the patient with a history of atrial fibrillation. SCDs have been ordered for VTE prophylaxis. All else as above.
[2018-01-20] MEDS ORDERED: Aminoglycoside Consult 1 EACH MC ONE (17:07)
[2018-01-20] MEDS: Temazepam 15 MG CAPSULE PO SCH (20:18)
[2018-01-21] MEDS: *HR* OxyCODONE Immed Rel 5 MG TABLET PO PRN ×3 (00:21→16:57)
[2018-01-21] MEDS: Sucralfate 1 GM TABLET PO SCH (07:59)
[2018-01-21] MEDS: *HR* OxyCODONE ER (12 HR) 10 MG TABLET PO SCH (07:59)
[2018-01-21] MEDS: Magnesium Oxide 400 MG TABLET PO SCH (07:59)
[2018-01-21] MEDS: D3 PO SCH (08:00)
[2018-01-21] MEDS: (Mirabegron [Myrbetriq] 50 MG) PO SCH (08:00)
[2018-01-21] MEDS: PHYTOSTROL PO SCH (08:00)
[2018-01-21] MEDS: Cholecalciferol (D-3) 1,000 UNIT TABLET PO SCH (08:00)
[2018-01-21] MEDS: Furosemide 20 MG TABLET PO SCH (08:00)
[2018-01-21] MEDS: Pregabalin 75 MG CAPSULE PO SCH (08:00)
[2018-01-21] MEDS: CALCIUM CARB CIT PO SCH (08:00)
[2018-01-21 09:55] LABS: Basophils % 0.1 %; Eosinophils # 0.1 K/mcL (0.0-0.6); Eosinophils % 0.6 %; Hematocrit 45.6 % (35.3-44.9); Immature Granulocytes % 0.5 % (0-4); Lymphocytes # 1.7 K/mcL (0.6-4.6); Lymphocytes % 19.3 %; Mean Corpuscular HGB Conc 31.6 g/dL (31.6-35.5); Mean Corpuscular Hemoglobin 29.7 pg (28.0-33.3); Mean Platelet Volume 10.3 fL (9.4-12.4); Monocytes # 0.8 K/mcL (0.0-1.3); Monocytes % 8.7 %; Neutrophils # 6.2 K/mcL (1.6-8.9); Platelet Count 268 K/mcL (140-400); Red Blood Count 4.85 M/mcL (3.82-4.97); Segmented Neutrophils % 70.8 %
[2018-01-21 09:56] LABS: Hemoglobin 14.4 g/dL (11.5-15.4)
[2018-01-21 10:14] LABS: BUN/Creatinine Ratio 18 (6-26); Blood Urea Nitrogen 16 mg/dL (8-23); Calcium 9.4 mg/dL (8.6-10.3); Carbon Dioxide 29 mEq/L (23-29); Chloride 102 mEq/L (98-107); Glucose 105 mg/dL (70-105); Osmolality,Calculated 292 (280-300); Potassium 3.3 mEq/L (3.5-5.1); Sodium 140 mEq/L (136-145); eGFR For African Americans > 60 (> 60); eGFR For Non-African Americans 60 (> 60)
--- NOTE | 2018-01-21 10:24 | Infectious Disease Consult ---
Date of Encounter: 01/21/18 Time of Encounter: 10:24 Assessment and Plan (1) Sacroiliitis Status: Acute Assessment and plan: Patient has sacral sacroiliac joints pain with associated bilateral sciatic neralgia - MRI on 01/20/2018 which demonstrated marrow edema throughout the sacrum bilaterally which favored sacral insufficiency fractures, osteomyelitis was felt to be less likely given no evidence of sacroiliac joint effusions. There was also noted nonspecific marrow edema and enhancement involving the superior right acetabulum reflects stress fracture or stress reaction. Chronic compression deformity of L4 vertebral body and multilevel spondylolysis of the visualized lumbar spine. -Antibiotics IV vancomycin and IV Zosyn given on January 19 and January 20 after which was discontinued - ESR 13, CRP <5, normal CBC and BMP which is less concerning for osteomyelitis. Sacral MRI was reviewed with radiology who do not believe that the images correlate with osteomylitis. Clinical examination, laboratory work and imaging do not give high suspicion for osteomylitis Plan: At this time infectious disease will signoff, please feel free to contact for re -evaluation if new concerns arise. (2) Osteoarthritis Status: Acute Assessment and plan: Active problem :osteoarthritis, multiple back surgeries (no current hardware, previous hardware), left wrist fracture 2 with hardware, bilateral knee replacements (Left in September, Right in November) - Chronic management. Qualifiers: Osteoarthritis location: unspecified site Osteoarthritis type: unspecified Qualified Code(s): M19.90 - Unspecified osteoarthritis, unspecified site (3) History of bilateral knee replacement Status: Acute Assessment and plan: Recent history of bilateral knee replacements. - Left knee replacement in September by Dr. Damon - Right knee replacement in November [address] Damon - No concerning findings of prosthetic joint infections. (4) CAD (coronary artery disease) Status: Chronic Qualifiers: Coronary Disease-Associated Artery/Lesion type: unspecified vessel or lesion type [place] vs. 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 Hardwick 83-year-old female transferred from [facility] 01/19/2018 with lower back pain concerns for osteomyelitis. Infectious disease was consult that for concerns for osteomyelitis of the sacrum on 01/20/2018 Ms. Hardwick is a 83 year old female significant past medical history of osteoporosis,osteoarthritis, multiple back surgeries (no current hardware, previous hardware), left wrist fracture 2 with hardware, bilateral knee replacements (Left in September, Right in November), atrial fibrillation-rhythm controlled on chronic anticoagulation, hypertension, hyperlipidemia presented to her specialist Dr. Cortez on Saturday of last week for injection of her sacroiliac joints due to chronic low back pain. She states she has had previous injections in her bilateral knees prior to knee replacements but this is the first time she had an injection in her lower back. She tolerated the procedure well that was completed in Dr. Cortez's office. She states the pain progressively worsened over the next several days until it became unbearable at 10 out of 10 with associated radiation of pain down the back of both legs into her feet noticed mostly on Saturday. She had associated nausea and associated vomiting that started on Saturday. She states that the pain was so bad over the last few days she could barely sit or stand and had difficulty trying to use the bathroom. When asked if she had any subjective fevers, chills or sweating she states that the pain was so bad she could not remember what or would have noticed. Her son and [id number] dimension that she had bright red cheeks which they described as flushing on Saturday and which was abnormal for her. She denies any weakness or loss of sensation or lower extremities since the procedure. She states that the pain was so bad and on tolerable and not improving that she presented to [facility] emergency department and had an MRI done which she states was concerning for osteomyelitis of her sacrum. She had called Dr. Cortez's office who recommended transfer to [facility] for further care. Upon direct admission to [facility] initial labs demonstrated afebrile, bradycardia at a heart rate of 56, normal respiratory rate and hypertension with appropriate oxygen saturation on 1 L nasal cannula oxygen. Initial labs completed demonstrating ESR of 13, CRP less than 5 and appropriate renal function. She was started on IV vancomycin and Zosyn at the time of admission and provided pain control. Patient underwent repeat MRI on which demonstrated marrow edema throughout the sacrum bilaterally which favored sacral insufficiency fractures, osteomyelitis was felt to be less likely given no evidence of sacroiliac joint effusions. There was also noted nonspecific marrow edema and enhancement involving the superior right acetabulum reflects stress fracture or stress reaction. Chronic compression deformity of L4 vertebral body and multilevel spondylolysis of the visualized lumbar spine. She was seen by pain control inpatient for reviewed MRI findings and believe the risk of infection was remote and did not seem to correlate with the injection sites. Upon evaluation today Mrs. Hardwick is resting comfortably sitting in her chair at bedside. She has remained afebrile throughout her inpatient stay with stable heart rate, stable respiratory rate, recurrence of hypertension and oxygenating at greater than 90% on room air. CBC throughout inpatient stay has remained without significant findings, chemistry panel without significant findings. Diego Hardwick is oriented 3 and answers questions appropriately. She denies any fevers, chills, diaphoresis, headaches, change in vision, chest pain or palpitations or shortness of breath or sputum production. She continues to have some mild nausea but is tolerating oral intake denies any diarrhea or constipation change in bowel function or bladder control or burning with urination. She has not noticed any swelling or erythema or loss of sensation or lower extremities. She does continue to have bilateral lower extremity sharpshooting pain from her lower back through the bottom of her feet but is able to move her lower extremities without difficulty. She denies significant improvement in her pain but denies any new or concerning changes. She is concerned about what may be causing her symptoms but is convinced that it is related to her injection sites. CC: Jorden Brandon MD Past Med Surg Social Fam HX - Past Medical History Medical history: atrial fibrillation, GERD, hyperlipidemia, hypertension Psychiatric history: anxiety, depression - Past Surgical History Surgical History: knee replacement - Social History Smoking Status: Never smoker Smokeless Tobacco Status: No Alcohol use: none Drug use: none Infectious Disease-CN:Meds Apixaban [Eliquis] 5 mg PO BID 09/30/17 [History] Aspirin [Lo-Dose Aspirin EC] 81 mg PO DAILY 09/30/17 [History] Biotin 5,000 mcg PO DAILY 09/30/17 [History] Calcium Carb,Cit/D3/Phytostrol [Citracal D + Heart Health Tab] 1 tab PO DAILY [History] Cholecalciferol (D-3) [Vitamin D] 1,000 unit PO BID 09/30/17 [History] Escitalopram [Lexapro] 10 mg PO DAILY 09/30/17 [History] Lisinopril [Zestril] 5 mg PO DAILY 09/30/17 [History] Magnesium Oxide [Magnesium] 400 mg PO DAILY 09/30/17 [History] Mirabegron [Myrbetriq] 50 mg PO DAILY 09/30/17 [History] Ondansetron HCl [Zofran] 4 mg PO Q6H PRN 09/30/17 [History] Oxycodone HCl [Oxycodone HCl ER] 30 mg PO Q12H 09/30/17 [History] Pantoprazole Sodium [Protonix] 40 mg PO DAILY 09/30/17 [History] Potassium Chloride [Klor-Con 10] 10 meq PO DAILY 09/30/17 [History] Pregabalin [Lyrica] 150 mg PO BID 09/30/17 [History] Rosuvastatin Calcium [Crestor] 10 mg PO HS 09/30/17 [History] Sotalol [Betapace] 80 mg PO DAILY 09/30/17 [History] Sucralfate [Carafate] 1 gm PO Q12H 09/30/17 [History] Temazepam [Restoril] 15 mg PO HS 09/30/17 [History] Ferrous Sulfate [Iron] 325 mg PO DAILY 12/04/17 [History] Furosemide [Lasix] 20 mg PO DAILY 12/04/17 [History] Polyethylene Glycol 3350 [MiraLAX] 17 gm PO DAILY 01/19/18 [History] Alendronate Sodium [Fosamax] 70 mg PO QWEEK #4 tab 01/21/18 [Rx] 3 Allergy/AdvReac Type Severity Reaction Status Date / Time No Known Allergies Allergy Verified 12/04/17 13:08 - Constitutional Constitutional: Absent: anorexia, chills, fatigue, fever(s), headache(s), night sweats, weakness - EENT Nose, mouth and throat: Absent: dizziness, sore throat - Cardiovascular Cardiovascular: Absent: chest pain, chest pain at rest, rapid heart rate, slow heart rate, syncope - Respiratory Respiratory: Absent: cough, dyspnea, hemoptysis, wheezing - Gastrointestinal Gastrointestinal: Present: nausea, vomiting. Absent: abdominal pain, change in bowel habits, constipation, diarrhea - Genitourinary Genitourinary: Absent: change in urinary stream, urinary frequency - Musculoskeletal Musculoskeletal: Present: back pain, deformity, numbness. Absent: joint swelling - Integumentary Integumentary: Absent: rash, skin ulcer - Neurological Neurological: Present: radicular pain. Absent: weakness Exam - Constitutional Vitals: Temp Pulse Resp BP Pulse Ox 98.7 F 69 16 160/92 93 01/21/18 07:35 01/21/18 07:35 01/21/18 07:35 01/21/18 07:35 01/21/18 07:35 Exam: General: Patient alert, awake, oriented 3, interactive, in no acute distress HEENT: Normocephalic, atraumatic, pupils equal reactive to light, oral mucosa moist, neck supple trachea midline no palpable lymphadenopathy, no thyromegaly. Chest: Symmetric bilateral correlating with respiratory effort, effort nonlabored. Cardiac: Regular rate and rhythm, positive S1 and S2. no bruits appreciated bilateral carotids, Radial pulses 2+ bilateral, posterior tibial and dorsal pedal pulses 2+ bilateral. Respiratory: Clear to auscultation all lung martínez Abdomen: Soft, nontender, positive bowel sounds, no palpable masses appreciated on examination Extremities: Symmetric bilateral, bilateral lower extremities without erythema or edema patient moving all 4 extremities spontaneously. Bilateral knee replacements (Left in September, Right in November 2017) deformity of the left wrist (metal plate 1 year ago), healed postsurgical scars of the thoracic and lumbar region and sacral dimpling without signs of erythema or edema. Small ecchymosis over the right SI joint. Tenderness to palpation over the sacrum and sacroiliac joints. Neurologic: No focal deficits appreciated on examination. Face symmetric, muscle strength symmetric bilateral upper and lower extremities. 4 out of 5 muscle strength in bilateral lower extremities symmetric. Infectious Disease CN: Results - Labs CBC & Chem 7: 01/21/18 09:43 01/21/18 09:43 Cultures: Cultures 01/19/18 09:16 Blood Culture - Preliminary Peripheral Central Cath, Picc No growth. 01/19/18 09:16 Blood Culture - Preliminary Peripheral Central Cath, Picc No growth. - VTE Documentation of Mechanical Device: Intermittent pneumatic compression device Consult Discharge Plan - Plan Referrals: Tee Cortez DO [Partnered Physician] - Lio Muñoz MD [Primary Care Provider] - Prescriptions: Alendronate Sodium [Fosamax] 70 mg PO QWEEK #4 tab - Attending Attestation I examined this patient and my medical decision-making was reviewed with the Resident Physician. I agree with the documented findings, disposition and treatment plan as described except to the extent set forth below. This is an addendum to original report dictated by resident physician, please refer to his note for full details. Patient is an 83 year old woman with PMH mentioned below has history of chronic Arthritis who had 5 surgeries before with hardware removal about 10 years ago at [facility] (hardware loosing). Patient was also seen at [facility] where she had MRSA bacteremia one set on 08/27/17. What patient was discharged on at that time is not known to us but we are trying to get records. Patient states that her back pain has been getting progressively worse and she saw Dr. Spivey where she had a steroid injection. On further questioning , patient denies any fevers, chills, night sweats, history of TB etc. Since admission patient had no sirs criteria and ESR and CrP were normal. I went and discussed case with radiology and they dont think its osteomyelitis. They stated that if its osteomyelitis, its a large area of bone and it would reveal surrounding tissue edema but there was NO tissue edema around the bone After discussion with radiology and after discussion with [facility] microbiology lab , even though patient has some risk factors for osteo (bacteremia with mrsa and steroid injection) the clinical picture does not reveal osteomyeltisi I will stop all antibiotics and observe. d/w hospitalist team
--- NOTE | 2018-01-21 15:10 | Discharge Summary ---
<Rashaun Polk - Last Filed: 01/21/18 15:06> - NOTES TO OUTPATIENT PROVIDER Notes to Outpatient Provider: Patient admitted after transferring from [facility] for possible osteomyelitis of lumbar spine seen on MRI. Patient had acute pain of her low back after recieving b/l sarcal joint injections for some pain management. She was started on IV antibiotics. Never met sirs critera. blood culture negative. Repeated pelvis MRI which showed that osteomyelitis unlikley. ID was consulted and d/c antibiotics. Patient will follow up out side with pain management. 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 transplanted heart: unspecified whether [place] or transplanted heart Associated angina: angina presence unspecified Qualified Code(s): I25.10 - Atherosclerotic heart disease of [place] coronary artery without angina pectoris (5) Chronic pain Priority: Secondary Status: Chronic Qualifiers: Chronic pain type: other chronic pain Qualified Code(s): G89.29 - Other chronic pain (6) HLD (hyperlipidemia) Priority: Secondary Status: Chronic Qualifiers: Hyperlipidemia type: unspecified Qualified Code(s): E78.5 - Hyperlipidemia , unspecified (7) HTN (hypertension) Priority: Secondary Status: Chronic Qualifiers: Hypertension type: essential hypertension Qualified Code(s): I10 - Essential (primary) hypertension (8) Osteoporosis Priority: Secondary Status: Acute Comments: hx of osteoporosis and severe djd of lumbar spine patient has never been on fossamax. does nothave difficulty swallowing will start fossamax and vitamin d plus calcium patient can follow up with primary care. Qualifiers: Osteoporosis type: age-related Presence of current pathological fracture: without current pathological fracture Qualified Code(s): M81.0 - Age-related osteoporosis without current pathological fracture Hospital course: Ms. Hardwick is a 83 year old female was transferred from [facility] see emergency room for severe lower back pain. Patient has history of chronic low back pain. Reports to stay before admission she had bilateral SI joint in section by [place] pain management. Thereafter she started having acute low back pain that radiated down both legs sharp. Patient had MRI of lumbar spine at [facility] which was concerning for osteomyelitis and therefore was transferred to [facility]. Patient was started on IV antibiotics and blood cultures were collected. She did not meet SIRS criteria on admission. Pain management was consulted and reported this is unlikely to be osteomyelitis but Recommended ID consult. Physical therapy and occupation therapy were also consulted. Patient's antibiotics were discontinued as per infectious disease if patient may need biopsy/tissue sample for culture. Furthermore patient has a history of MRSA infection at [facility], with evidence of loose hardware on imaging. Radiology recommended a pelvis MRI with and without contrast which showed that osteomyelitis unlikely. Patient's ESR was 13 CRP was less than 5. It was determined that patient did not have osteomyelitis. Patient was also started on Fosamax and will continue her vitamin D calcium supplementation outpatient. She will follow-up with her PCP and sign painter helper. PT reported patient does not have any acute rehabilitation needs but may benefit from outpatient PT. Discharge discussed with: patient, family - Time Spent with Patient Total time spent providing and/or coordinating discharge services: - Discharge Medications Prescriptions: Alendronate Sodium [Fosamax] 70 mg PO QWEEK #4 tab Home Medications: Apixaban [Eliquis] 5 mg PO BID 09/30/17 [History] Aspirin [Lo-Dose Aspirin EC] 81 mg PO DAILY 09/30/17 [History] Biotin 5,000 mcg PO DAILY 09/30/17 [History] Calcium Carb,Cit/D3/Phytostrol [Citracal D + Heart Health Tab] 1 tab PO DAILY [History] Cholecalciferol (D-3) [Vitamin D] 1,000 unit PO BID 09/30/17 [History] Escitalopram [Lexapro] 10 mg PO DAILY 09/30/17 [History] Lisinopril [Zestril] 5 mg PO DAILY 09/30/17 [History] Magnesium Oxide [Magnesium] 400 mg PO DAILY 09/30/17 [History] Mirabegron [Myrbetriq] 50 mg PO DAILY 09/30/17 [History] Ondansetron HCl [Zofran] 4 mg PO Q6H PRN 09/30/17 [History] Oxycodone HCl [Oxycodone HCl ER] 30 mg PO Q12H 09/30/17 [History] Pantoprazole Sodium [Protonix] 40 mg PO DAILY 09/30/17 [History] Potassium Chloride [Klor-Con 10] 10 meq PO DAILY 09/30/17 [History] Pregabalin [Lyrica] 150 mg PO BID 09/30/17 [History] Rosuvastatin Calcium [Crestor] 10 mg PO HS 09/30/17 [History] Sotalol [Betapace] 80 mg PO DAILY 09/30/17 [History] Sucralfate [Carafate] 1 gm PO Q12H 09/30/17 [History] Temazepam [Restoril] 15 mg PO HS 09/30/17 [History] Ferrous Sulfate [Iron] 325 mg PO DAILY 12/04/17 [History] Furosemide [Lasix] 20 mg PO DAILY 12/04/17 [History] Polyethylene Glycol 3350 [MiraLAX] 17 gm PO DAILY 01/19/18 [History] Alendronate Sodium [Fosamax] 70 mg PO QWEEK #4 tab 01/21/18 [Rx] Allergies/Adverse Reactions: 3 Allergy/AdvReac Type Severity Reaction Status Date / Time No Known Allergies Allergy Verified 12/04/17 13:08 Date of admission: 01/19/18 08:34 Primary care physician: Lio Muñoz MD Consults: 01/19/18 08:38 Consult to Physical Therapy [CONS] Routine Comment: Evaluate, develop and implement POC Reason for Consult: back pain Does patient have active BEDREST order?: No Is patient medically & hemodynamically stable?: Yes Patient assessed for mobility or mobilized this visit?: Yes 01/19/18 09:08 Consult to Pain Management [CONS] Routine Consulting Provider: Pain Mgt Interventional [place] Reason for Consult: infection post-injection, I spoke to Dr jones Time Notified: 09:09 Call Completed: Yes 01/20/18 17:04 Consult to Infectious Diseases [CONS] Routine Consulting Provider: Infectious Disease [place] Reason for Consult: Concern for osteomyelitis, in lower back Call Completed: Yes Discharging clinician: Rashaun Polk Anticipated date of discharge: 01/21/18 - Constitutional Vitals: Temp Pulse Resp BP Pulse Ox 97.6 F 56 16 123/74 96 01/21/18 11:48 01/21/18 11:48 01/21/18 11:48 01/21/18 11:48 01/21/18 11:48 General appearance: Present: cooperative, A&O X 3, pleasant - Other Additional findings: General: pleasant without distress HEENT: Head atraumatic, normocephalic, EOMI, PERRL, neck nontender to palpation , absent lymphadenopathy, Moist Mucous Membranes, Heart: Regular rate and rhythm with no murmur Lungs: Clear to auscultation bilaterally Abdomen: Soft nontender, nondistended positive bowel sounds Skin: warm and dry Extremities: Absent pedal edema, Back: large scar from previous back surgeries, absent erythema, inflammation, tenderness to palpation. Neuro: Cranial nerves II through XII intact, UE and LE sensation equal bilaterally, UE and LEstrength 5/5, alert oriented 3, Vascular: Pedal and radial pulses 2 out of 4 - Patient Status Disposition: Home, Self-Care Functional capacity at discharge: independent ambulation Overall status at discharge: patient is progressing back to baseline - Discharge Instructions Follow Up With: Lio Muñoz MD [Primary Care Provider] - Tee Cortez DO [Partnered Physician] - - Diet and Activity Activity: increase activity as tolerated Diet: advance to your usual diet - VTE Documentation of Mechanical Device: Intermittent pneumatic compression device <Tee Valdez - Last Filed: 01/21/18 16:31> Orders not resulted at time of discharge: Pending orders 01/19/18 09:16 Culture,Blood,Additional [BC] Routine 01/20/18 17:45 Procalcitonin Routine Date of Encounter: 01/21/18 Hospital course: Ms. Hardwick is a 83 year old female - Time Spent with Patient Total time spent providing and/or coordinating discharge services: Date of admission: 01/19/18 08:34 Primary care physician: Lio Muñoz MD Consults: 01/19/18 08:38 Consult to Physical Therapy [CONS] Routine Comment: Evaluate, develop and implement POC Reason for Consult: back pain Does patient have active BEDREST order?: No Is patient medically & hemodynamically stable?: Yes Patient assessed for mobility or mobilized this visit?: Yes 01/19/18 09:08 Consult to Pain Management [CONS] Routine Consulting Provider: Pain Mgt Interventional [place] Reason for Consult: infection post-injection, I spoke to Dr jones Time Notified: 09:09 Call Completed: Yes 01/20/18 17:04 Consult to Infectious Diseases [CONS] Routine Consulting Provider: Infectious Disease [place] Reason for Consult: Concern for osteomyelitis, in lower back Call Completed: Yes - Constitutional Vitals: Temp Pulse Resp BP Pulse Ox 98.5 F 58 16 122/75 96 01/21/18 16:23 01/21/18 16:23 01/21/18 16:23 01/21/18 16:23 01/21/18 16:23 - Attending Attestation I performed an independent interviewed and examined this patient. I agree with the findings, assessment, and plan of Dr. Polk, internal medicine resident. No evidence of osteomyelitis based on imaging as well as inflammatory markers. Case was discussed with infectious disease who concurs. Patient is stable for discharge. 32 minutes spent on discharge and coordination of care. We did recommend patient start Fosamax for osteoporosis and follow-up with her primary care provider. Patient otherwise was sent home with her caretakers.
[2018-01-21 16:26] VITALS: BP 122/75
== END 2018-01-21 17:08 | disposition home or self-care (01) | DRG 552 ==
LOC: 3NENU
PROVIDERS: ADMIT Internal Medicine; ATTEND Student in an Organized Health Care Education/Training Program

== ENCOUNTER 2020-06-20 11:57 | Inpatient (IN) ==
[~2020-06-20 11:57] MED LIST: Vancomycin 1,250 MG/262.5 ML IV.SOLN IVPB ONE
[2020-06-20] MEDS ORDERED: Lidocaine -MPF 2% 5 ML VIAL ONE (12:21)
[2020-06-20] MEDS ORDERED: Ringers Solution, Lactated 1,000 ML IVC SCH ×2 (13:00→18:50)
[2020-06-20] MEDS ORDERED: Acetaminophen IV 1,000 MG/100 ML INFUS..BTL IVPB ONE (13:30)
[2020-06-20] MEDS ORDERED: Ethanol\\Acetic Acid\\Na Ace\\Ben 1,000 ML IRRIG.SOLN IR ONE (13:41)
[2020-06-20] MEDS ORDERED: Vancomycin 1,000 MG VIAL ONE (13:41)
[2020-06-20] MEDS ORDERED: Ropivacaine/PF 0.5% 30 ML VIAL ONE (13:42)
[2020-06-20] MEDS ORDERED: Total Joint Mixture (50 ml) INTRAART ONE (13:55)
[2020-06-20] MEDS ORDERED: EPHEDrine 50 MG/ML VIAL ONE (14:19)
[2020-06-20] MEDS ORDERED: Tranexamic Acid 1,000 MG/10 ML VIAL ONE (14:21)
[2020-06-20] MEDS ORDERED: *HR* FentaNYL (PF) 100 MCG/2 ML VIAL ONE (14:22)
[2020-06-20] MEDS ORDERED: Ondansetron 4 MG/2 ML VIAL ONE (14:39)
[2020-06-20] MEDS ORDERED: Dexamethasone 4 MG/ML VIAL ONE (14:39)
[2020-06-20] MEDS ORDERED: Ondansetron 4 MG/2 ML VIAL IVP ONE (15:41)
[2020-06-20] MEDS ORDERED: *HR* OxyCODONE Immed Rel 5 MG TABLET PO PRN (15:41)
[2020-06-20] MEDS: *HR* FentaNYL (PF) 100 MCG/2 ML VIAL IVP PRN ×2 (15:50→16:02)
[2020-06-20 16:11] LABS: Hematocrit 27.7 % (35.3-44.9); Hemoglobin 7.7 g/dL (11.5-15.4)
[2020-06-20] MEDS ORDERED: Naloxone 0.4 MG/ML INJ IVP PRN (18:50)
[2020-06-20] MEDS ORDERED: MOM Conc 10 ML UD.LIQ PO PRN (18:50)
[2020-06-20] MEDS ORDERED: Dextrose Gel 15 GM/37.5 ML TUBE PO PRN ×2 (18:50)
[2020-06-20] MEDS ORDERED: Ondansetron 4 MG/2 ML VIAL IVP PRN (18:50)
[2020-06-20] MEDS ORDERED: Sennosides 8.6 MG TABLET PO PRN (18:50)
[2020-06-20] MEDS ORDERED: hydrOXYzine pamoate 25 MG CAPSULE PO PRN ×2 (18:50→21:47)
[2020-06-20] MEDS ORDERED: *HR* Promethazine 25 MG/ML VIAL IVP PRN (18:50)
[2020-06-20] MEDS ORDERED: D5% in Water 1,000 ML IVC PRN (18:50)
[2020-06-20] MEDS ORDERED: *HR* Dextrose 50 % in Water (Vial) 50 ML VIAL IVP PRN (18:50)
[2020-06-20] MEDS: Pregabalin 50 MG CAPSULE PO SCH (20:21)
[2020-06-20] MEDS: Ascorbic Acid 500 MG TABLET PO SCH (20:21)
[2020-06-20] MEDS: Magnesium Oxide 400 MG TABLET PO SCH (20:21)
[2020-06-20] MEDS: Sucralfate 1 GM TABLET PO SCH ×2 (20:22→20:25)
[2020-06-20] MEDS: CeFAZolin 2 GM/120 ML BAG IVPB SCH (20:22)
[2020-06-20] MEDS: Insulin LISPRO 300 UNITS/3 ML VIAL SQ SCH ×2 (20:26→20:39)
[2020-06-20] MEDS ORDERED: hydrOXYzine pamoate 25 MG CAPSULE PO ONE (21:47)
[2020-06-21] MEDS: HYDROcodone BIT/Homatropine 5 MG TABLET PO PRN ×2 (00:22→13:52)
[2020-06-21] MEDS ORDERED: Vancomycin 1,250 MG/262.5 ML IV.SOLN IVPB ONE (00:30)
[2020-06-21] MEDS: CeFAZolin 2 GM/120 ML BAG IVPB SCH (04:16)
[2020-06-21 05:03] LABS: Mean Corpuscular HGB Conc 27.5 g/dL (31.6-35.5); Red Cell Distribution Width 18.4 % (11.5-14.5)
[2020-06-21 05:04] LABS: Hematocrit 26.9 % (35.3-44.9); Hemoglobin 7.4 g/dL (11.5-15.4); Immature Granulocytes % 0.4 % (0-4); Lymphocytes # 0.8 K/mcL (0.6-4.6); Lymphocytes % 8.3 %; Mean Corpuscular Volume 76.2 fL (83.0-100.0); Mean Platelet Volume 10.7 fL (9.4-12.4); Monocytes # 0.3 K/mcL (0.0-1.3); Monocytes % 3.5 %; Neutrophils # 8.2 K/mcL (1.6-8.9); Platelet Count 268 K/mcL (140-400); Red Blood Count 3.53 M/mcL (3.82-4.97); Segmented Neutrophils % 87.8 %; White Blood Count 9.3 K/mcL (4.3-11.1)
[2020-06-21 05:20] LABS: BUN/Creatinine Ratio 23 (6-26); Blood Urea Nitrogen 14 mg/dL (8-23); Calcium 8.8 mg/dL (8.6-10.3); Carbon Dioxide 28 mEq/L (23-29); Chloride 102 mEq/L (98-107); Glucose 127 mg/dL (70-105); Osmolality,Calculated 284 (280-300); Potassium 4.3 mEq/L (3.5-5.1); Sodium 136 mEq/L (136-145); eGFR For African Americans > 60 (> 60); eGFR For Non-African Americans > 60 (> 60)
[2020-06-21 05:57] LABS: Anisocytosis 1+ (Not Present); Hypochromasia Present (Not Present); Platelet Estimate Normal (Normal)
[2020-06-21] MEDS ORDERED: Ascorbic Acid 500 MG TABLET PO SCH (09:00)
[2020-06-21] MEDS ORDERED: Aspirin Enteric Coated 81 MG Tablet PO SCH (09:00)
[2020-06-21] MEDS ORDERED: BIOTIN 5000 MCG PO SCH (09:00)
[2020-06-21] MEDS: Sucralfate 1 GM TABLET PO SCH ×4 (09:23→21:17)
[2020-06-21] MEDS: Cholecalciferol (D-3) 1,000 UNIT (25MCG) TABLET PO SCH (09:23)
[2020-06-21] MEDS: Multivit/Ca/Min/Fe/FA 1 TAB TABLET PO SCH (09:24)
[2020-06-21] MEDS: Furosemide 20 MG TABLET PO SCH (09:24)
[2020-06-21] MEDS: Pregabalin 50 MG CAPSULE PO SCH ×2 (09:24→21:16)
[2020-06-21] MEDS: Cyanocobalamin (B-12) 1,000 MCG TABLET PO SCH (09:24)
[2020-06-21] MEDS: polyethylene glycoL 3350 17 GM POWD.PACK PO SCH (09:25)
[2020-06-21] MEDS: Insulin LISPRO 300 UNITS/3 ML VIAL SQ SCH ×4 (09:25→21:20)
[2020-06-21] MEDS: Ascorbic Acid 500 MG TABLET PO SCH ×2 (09:26→17:34)
[2020-06-21] MEDS: (Mirabegron [Myrbetriq] 50 MG) PO SCH (09:27)
[2020-06-21] MEDS: Aspirin Enteric Coated 81 MG Tablet PO SCH (09:27)
[2020-06-21] MEDS: *HR* OxyCODONE Immed Rel 5 MG TABLET PO PRN ×2 (09:47→17:34)
[2020-06-21] MEDS: Magnesium Oxide 400 MG TABLET PO SCH (17:34)
[2020-06-22 02:10] LABS: Basophils % 0.1 %; Eosinophils % 0.2 %; Immature Granulocytes % 0.3 % (0-4); Lymphocytes % 15.8 %
[2020-06-22 02:11] LABS: Hematocrit 24.1 % (35.3-44.9); Hemoglobin 6.6 g/dL (11.5-15.4); Lymphocytes # 1.6 K/mcL (0.6-4.6); Mean Corpuscular HGB Conc 27.4 g/dL (31.6-35.5); Mean Corpuscular Volume 76.5 fL (83.0-100.0); Mean Platelet Volume 10.5 fL (9.4-12.4); Monocytes # 1.2 K/mcL (0.0-1.3); Neutrophils # 7.1 K/mcL (1.6-8.9); Nucleated Red Blood Cells 0.2 /100 WBC (0); Platelet Count 259 K/mcL (140-400); Red Blood Count 3.15 M/mcL (3.82-4.97); Red Cell Distribution Width 18.6 % (11.5-14.5); Segmented Neutrophils % 71.6 %; White Blood Count 9.9 K/mcL (4.3-11.1)
[2020-06-22 02:33] LABS: BUN/Creatinine Ratio 28 (6-26); Blood Urea Nitrogen 23 mg/dL (8-23); Calcium 8.6 mg/dL (8.6-10.3); Carbon Dioxide 27 mEq/L (23-29); Chloride 103 mEq/L (98-107); Glucose 120 mg/dL (70-105); Osmolality,Calculated 287 (280-300); Sodium 136 mEq/L (136-145); eGFR For African Americans > 60 (> 60); eGFR For Non-African Americans > 60 (> 60)
[2020-06-22 02:47] LABS: Hypochromasia Present (Not Present); Platelet Estimate Normal (Normal)
[2020-06-22] MEDS ORDERED: 0.9 % Sodium Chloride 250 ML ONE ×2 (09:31→14:41)
[2020-06-22] MEDS: Aspirin Enteric Coated 81 MG Tablet PO SCH (09:44)
[2020-06-22] MEDS: Sucralfate 1 GM TABLET PO SCH ×4 (09:44→21:04)
[2020-06-22] MEDS: Cyanocobalamin (B-12) 1,000 MCG TABLET PO SCH (09:44)
[2020-06-22] MEDS: Ascorbic Acid 500 MG TABLET PO SCH ×2 (09:45→16:47)
[2020-06-22] MEDS: Furosemide 20 MG TABLET PO SCH (09:45)
[2020-06-22] MEDS: Multivit/Ca/Min/Fe/FA 1 TAB TABLET PO SCH (09:45)
[2020-06-22] MEDS: Cholecalciferol (D-3) 1,000 UNIT (25MCG) TABLET PO SCH (09:45)
[2020-06-22] MEDS: Pregabalin 50 MG CAPSULE PO SCH ×2 (09:45→21:04)
[2020-06-22] MEDS: Insulin LISPRO 300 UNITS/3 ML VIAL SQ SCH ×4 (09:47→21:04)
[2020-06-22] MEDS: (Mirabegron [Myrbetriq] 50 MG) PO SCH (09:48)
[2020-06-22] MEDS: polyethylene glycoL 3350 17 GM POWD.PACK PO SCH (09:48)
[2020-06-22] MEDS: *HR* OxyCODONE Immed Rel 5 MG TABLET PO PRN (11:47)
[2020-06-22] MEDS: Magnesium Oxide 400 MG TABLET PO SCH (16:47)
[2020-06-22 19:36] LABS: Hematocrit 31.1 % (35.3-44.9)
[2020-06-22] MEDS: HYDROcodone BIT/Homatropine 5 MG TABLET PO PRN (21:05)
[2020-06-22] MEDS: Acetaminophen IV 1,000 MG/100 ML INFUS..BTL IVPB SCH (23:52)
[2020-06-23] MEDS: *HR* OxyCODONE Immed Rel 5 MG TABLET PO PRN ×3 (02:01→12:06)
[2020-06-23] MEDS: HYDROcodone BIT/Homatropine 5 MG TABLET PO PRN (04:50)
[2020-06-23] MEDS: Acetaminophen IV 1,000 MG/100 ML INFUS..BTL IVPB SCH ×2 (07:50→12:07)
[2020-06-23] MEDS: polyethylene glycoL 3350 17 GM POWD.PACK PO SCH (08:00)
[2020-06-23] MEDS: Aspirin Enteric Coated 81 MG Tablet PO SCH (08:03)
[2020-06-23] MEDS: Multivit/Ca/Min/Fe/FA 1 TAB TABLET PO SCH (08:03)
[2020-06-23] MEDS: Cyanocobalamin (B-12) 1,000 MCG TABLET PO SCH (08:03)
[2020-06-23] MEDS: Ascorbic Acid 500 MG TABLET PO SCH (08:03)
[2020-06-23] MEDS: Cholecalciferol (D-3) 1,000 UNIT (25MCG) TABLET PO SCH (08:03)
[2020-06-23] MEDS: Pregabalin 50 MG CAPSULE PO SCH (08:04)
[2020-06-23] MEDS: Furosemide 20 MG TABLET PO SCH (08:04)
[2020-06-23] MEDS: Sucralfate 1 GM TABLET PO SCH ×2 (08:04→12:06)
[2020-06-23] MEDS: (Mirabegron [Myrbetriq] 50 MG) PO SCH (08:05)
[2020-06-23 08:17] LABS: Basophils % 0.4 %; Hemoglobin 8.6 g/dL (11.5-15.4); Red Cell Distribution Width 19.8 % (11.5-14.5)
[2020-06-23 08:18] LABS: Eosinophils # 0.2 K/mcL (0.0-0.6); Eosinophils % 2.5 %; Hematocrit 29.5 % (35.3-44.9); Immature Granulocytes % 0.4 % (0-4); Lymphocytes # 1.8 K/mcL (0.6-4.6); Lymphocytes % 22.1 %; Mean Corpuscular HGB Conc 29.2 g/dL (31.6-35.5); Mean Corpuscular Hemoglobin 23.1 pg (28.0-33.3); Mean Corpuscular Volume 79.1 fL (83.0-100.0); Mean Platelet Volume 10.3 fL (9.4-12.4); Monocytes % 12.1 %; Neutrophils # 5.2 K/mcL (1.6-8.9); Nucleated Red Blood Cells 0.2 /100 WBC (0); Platelet Count 249 K/mcL (140-400); Red Blood Count 3.73 M/mcL (3.82-4.97); Segmented Neutrophils % 62.5 %; White Blood Count 8.3 K/mcL (4.3-11.1)
[2020-06-23 08:31] LABS: BUN/Creatinine Ratio 32 (6-26); Blood Urea Nitrogen 20 mg/dL (8-23); Calcium 8.6 mg/dL (8.6-10.3); Carbon Dioxide 29 mEq/L (23-29); Chloride 106 mEq/L (98-107); Glucose 91 mg/dL (70-105); Osmolality,Calculated 290 (280-300); Potassium 4.2 mEq/L (3.5-5.1); Sodium 139 mEq/L (136-145); eGFR For African Americans > 60 (> 60); eGFR For Non-African Americans > 60 (> 60)
[2020-06-23] MEDS: Insulin LISPRO 300 UNITS/3 ML VIAL SQ SCH ×2 (08:38→12:06)
[2020-06-23 12:17] VITALS: BP 146/73
[2020-06-23 12:35] LABS: Platelet Estimate Normal (Normal)
[2020-06-23 14:04] LABS: Adenovirus Not Detected (Not Detect); Coronavirus 229E Not Detected (Not Detect); Coronavirus HKU1 Not Detected (Not Detect); Coronavirus NL63 Not Detected (Not Detect); Coronavirus OC43 Not Detected (Not Detect)
[2020-06-23 14:06] LABS: Bordetella Pertussis Not Detected (Not Detect); Chlamydophila pneumoniae Not Detected (Not Detect); Human Metapneumovirus Not Detected (Not Detect); Human Rhinovirus/Enterovirus Not Detected (Not Detect); Influenza A Subtype 2009 H1 Not Detected (Not Detect); Influenza B Not Detected (Not Detect); Mycoplasma pneumoniae Not Detected (Not Detect); Parainfluenza Virus 1 Not Detected (Not Detect); Parainfluenza Virus 2 Not Detected (Not Detect); Parainfluenza Virus 3 Not Detected (Not Detect); Parainfluenza Virus 4 Not Detected (Not Detect); Respiratory Syncytial Virus Not Detected (Not Detect)
[2020-06-25] MEDS ORDERED: NON-FORMULARY MEDICATION 1 EACH EACH (Alendronate Sodium [Fosamax] 70 MG) PO SCH (13:10)
== END 2020-06-23 15:56 | DRG 467 ==
LOC: SAMDAY 11:57 → 3NENU 17:45
PROVIDERS: ADMIT Orthopaedic Surgery; ATTEND Orthopaedic Surgery